=== PATIENT | male | born 1950 | race Caucasian/White ===

== ENCOUNTER 2019-03-19 18:42 | Inpatient (IN) | payer BC ==
--- NOTE | 2019-03-19 18:56 | PDOC ---
Rapid Medical Evaluation Time Seen by Provider: 03/19/19 18:51 Medical Evaluation: Allergies Allergy/AdvReac Type Severity Reaction Status Date / Time No Known Allergies Allergy Unverified 01/03/13 11:54 03/19/19 18:51 Pt presents to the ED with c/o: dizziness decreased vision when he covers his right eye he has blurriness to left eye, numbness to mouth with dizziness x 2 days, sent by jd to r/o stroke, hx tia, hiv, lung cancer Pt on brief exam: EOMI, no facial droop , Pt ordered for: head ct, labs, iv Pt to proceed to the ED Discharge Disposition - Diagnosis Dizziness - Referrals - Patient Instructions - Post Discharge Activity
[2019-03-19 19:56] LABS: BASO % 1.1 % (0-2.0); EOS % 2.6 % (0-4.5); HEMATOCRIT 39.2 % (35.4-49); HEMOGLOBIN 13.1 GM/dL (11.7-16.9); LYMPH % 25.2 % (8-40); MCH 30.3 pg (25.7-33.7); MCHC 33.5 g/dl (32.0-35.9); MEAN CELL VOLUME 90.3 fl (80-96); MEAN PLT VOLUME 10.1 fl (7.5-11.1); NEUT % 62.1 % (42.8-82.8); PLATELET COUNT 248 K/MM3 (134-434); RBC 4.34 M/mm3 (4.00-5.60); RDW 14.5 % (11.9-15.9); WHITE BLOOD COUNT 8.7 K/mm3 (4.0-10.0)
[2019-03-19 20:16] LABS: INR 0.97 (0.83-1.09); PROTHROMBIN TIME (PATIENT) 11.5 SEC (9.7-13.0)
[2019-03-19 20:21] LABS: ALBUMIN 3.7 g/dl (3.4-5.0); ALK PHOS 78 U/L (45-117); ANION GAP 8 MMOL/L (8-16); BILIRUBIN,TOTAL 0.3 mg/dL (0.2-1); BLOOD UREA NITROGEN 15 mg/dL (7-18); CALCIUM 8.6 mg/dL (8.5-10.1); CHLORIDE 106 mmol/L (98-107); CO2 26 mmol/L (21-32); GLUCOSE,RANDOM 85 mg/dL (74-106); MAGNESIUM 2.4 mg/dL (1.8-2.4); POTASSIUM 4.3 mmol/L (3.5-5.1); SGOT/AST 9 U/L (15-37); SGPT/ALT 15 U/L (13-61); SODIUM 140 mmol/L (136-145); TOT PROT 7.1 g/dl (6.4-8.2)
--- NOTE | 2019-03-19 20:34 | PDOC ---
History of Present Illness - General Chief Complaint: CVA/TIA Stated Complaint: DIZZINESS VISION LOSS Time Seen by Provider: 03/19/19 18:51 - History of Present Illness Initial Comments: 69yo M with history of Lung CA s/p chemoradiation and surgery, skin CA, CVA/TIA , HTN, COPD, Smoking (half ppd x 21 years) sent by his primary care physician for worsening dizziness, mouth numbness, confusion, and vision changes. is at the bedside providing collateral history. Patient states he has been dizzy since a "mini stroke" about a year ago. She describes that he had an imaging study at an outside hospital that revealed this finding. His other issues have worsened in the past month or two, and became even more acute today around 1pm, prompting him to see his doctor. He says that his vision has blurred which improves upon closing one eye. He does not usually get headaches, but has had one intermittently for the past 25 days or so. He is more confused: for example , his stroke workup was more than a year ago but during history-taking, he states it was four months ago. 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 Does not feel dizzy currently. Patient' s reports he is supposed to take medicine for his COPD but does not do so. No fevers, chills, chest pain, or shortness of breath. PCP: Dr. Anival Whitaker: Dr Foster Neuro: does not remember the name tPA Exclusion checklist 3-4.5h - Time Elapsed Date last known well: 03/19/19 Time last known well: 13:00 Elaspsed time: 2 Day(s) and 0 Hour(s) and 36 Minutes - Thrombolytic Therapy Candidate Is patient eligible for thrombolytic therapy: No - Relative Exclusion Criteria 3-4.5 hr Stroke severity too mild: Yes - Ineligibility reason(s) Reasons No tPA given: Outside of window - delayed arrival NIH Stroke Scale - Last Known Well Date/Time & Onset Date Last Known Well: 03/19/19 Time Last Known Well: 13:00 - Initial Evaluation Level of consciousness: Alert Ask patient the month and their age: Answers both correctly Ask patient to open & close eyes; make fist and let go: Obeys both correctly Best gaze (horizontal eye movement): Normal Visual field testing: No visual field loss Facial paresis (Show teeth/raise eyebrows/close eyes tight): Normal symmetrical movement Motor Function: Left Arm: Normal Motor Function: Right Arm: Normal (extends arm 90 (or 45) degrees for 10 seconds without drift Motor Function: Left Leg: Normal (extends leg 30 degrees for 5 seconds without drift) Motor Function: Right Leg: Normal (extends leg 30 degrees for 5 seconds without drift) Limb Ataxia: No ataxia Sensory(Use pinprick test arms,legs,trunk,face/side to side): Normal Best language (Describe picture, name items, read sentences): No Aphasia Dysarthria (read several words): Normal articulation Extinction and Inattention: No abnormality - Total Score NIH Stroke Scale Score: 0 Past History - Past Medical History Allergies/Adverse Reactions: Allergies Allergy/AdvReac Type Severity Reaction Status Date / Time No Known Allergies Allergy Verified 03/19/19 18:53 Home Medications: Ambulatory Orders Aspirin [ASA -] 81 mg PO DAILY 03/19/19 COPD: (EMPHYSEMA) Hypercholesterolemia: Yes Liver Disease: Yes ("SPOT ON LIVER") Thyroid Disease: Yes (H/O HYPERTHYROIDISM) - Immunization History Immunization Up to Date: Yes - Suicide/Smoking/Psychosocial Hx Smoking History: Current every day smoker Have you smoked in the past 12 months: Yes Number of Cigarettes Smoked Daily: 5 Information on smoking cessation initiated: No 'Breaking Loose' booklet given: 01/03/13 Hx Alcohol Use: No Drug/Substance Use Hx: No Substance Use Type: Alcohol Hx Substance Use Treatment: No Review of Systems - Review of Systems Comments:: Constitutional: no fever, no chills HEENT: +strange mouth sensation, +vision changes Cardiovascular: no chest pain, no palpitations Respiratory: no cough, no shortness of breath Gastrointestinal: no nausea, no vomiting Genitourinary: no dysuria, no frequency Musculoskeletal: no myalgia, no arthralgia Skin: no rash, no itching Neurologic: +headache, +weakness *Physical Exam - Vital Signs Last Vital Signs Temp Pulse Resp BP Pulse Ox 98.2 F 75 15 146/56 L 97 03/19/19 18:54 03/19/19 18:54 03/19/19 18:54 03/19/19 18:54 03/19/19 18:54 - Physical Exam Comments: General: Awake, alert, and fully oriented Head: No signs of trauma Eyes: EOMI, sclera anicteric ENT: Moist mucus membranes Neck: Normal ROM, supple Lungs: Clear to ascultation bilaterally Cardio: Regular rhythm, S1 and S2 present Abdomen: Soft, nontender Extremities: Normal range of motion, Distal pulses present SKIN: Warm, dry Neurologic: Cranial nerves II through XII intact. Normal speech, sensation, coordination, gait. Please see NIHSS. ED Treatment Course - LABORATORY CBC & Chemistry Diagram: 03/20/19 05:30 03/20/19 05:20 - ADDITIONAL ORDERS Additional order review: Laboratory Results 03/19/19 03/19/19 19:04 19:04 PT with INR 11.50 INR 0.97 Sodium 140 Potassium 4.3 Chloride 106 Carbon Dioxide 26 Anion Gap 8 BUN 15 Creatinine 1.0 Creat Clearance w eGFR 74.09 Random Glucose 85 Calcium 8.6 Magnesium 2.4 Total Bilirubin 0.3 AST 9 L ALT 15 Alkaline Phosphatase 78 Creatine Kinase 120 Troponin I < 0.02 Total Protein 7.1 Albumin 3.7 03/19/19 19:04 RBC 4.34 MCV 90.3 MCHC 33.5 RDW 14.5 MPV 10.1 Neutrophils % 62.1 Lymphocytes % 25.2 Monocytes % 9.0 Eosinophils % 2.6 Basophils % 1.1 Medical Decision Making - Medical Decision Making 69yo M with history of Lung CA s/p chemoradiation and surgery, CVA/TIA, HTN, COPD, Smoking (half ppd x 21 years) sent by his primary care physician for worsening dizziness, mouth numbness, and vision changes. DDX including but not limited to CVA, vascular dementia, electrolyte abnormality , infection It is uncertain what kind of stroke workup patient has received in the past as such was done at another facility. Since he reports worsened symptoms, it is prudent to assess the etiology of the change. NIHSS is 0. Not a TPA candidate. 03/19/19 20:38 EKG: rate 62, QTc 412, NSR, LVH CBC WBC 8.7 K/mm3 (4.0-10.0) 03/19/19 19:04 RBC 4.34 M/mm3 (4.00-5.60) 03/19/19 19:04 Hgb 13.1 GM/dL (11.7-16.9) 03/19/19 19:04 Hct 39.2 % (35.4-49) 03/19/19 19:04 MCV 90.3 fl (80-96) 03/19/19 19:04 MCH 30.3 pg (25.7-33.7) 03/19/19 19:04 MCHC 33.5 g/dl (32.0-35.9) 03/19/19 19:04 RDW 14.5 % (11.9-15.9) 03/19/19 19:04 Plt Count 248 K/MM3 (134-434) 03/19/19 19:04 MPV 10.1 fl (7.5-11.1) 03/19/19 19:04 Absolute Neuts (auto) 5.4 K/mm3 (1.5-8.0) 03/19/19 19:04 Neutrophils % 62.1 % (42.8-82.8) 03/19/19 19:04 Lymphocytes % 25.2 % (8-40) 03/19/19 19:04 Monocytes % 9.0 % (3.8-10.2) 03/19/19 19:04 Eosinophils % 2.6 % (0-4.5) 03/19/19 19:04 Basophils % 1.1 % (0-2.0) 03/19/19 19:04 Nucleated RBC % 0 % (0-0) 03/19/19 19:04 No anemia or leukocytosis CMP Sodium 140 mmol/L (136-145) 03/19/19 19:04 Potassium 4.3 mmol/L (3.5-5.1) 03/19/19 19:04 Chloride 106 mmol/L (98-107) 03/19/19 19:04 Carbon Dioxide 26 mmol/L (21-32) 03/19/19 19:04 Anion Gap 8 MMOL/L (8-16) 03/19/19 19:04 BUN 15 mg/dL (7-18) 03/19/19 19:04 Creatinine 1.0 mg/dL (0.55-1.3) 03/19/19 19:04 Creat Clearance w eGFR 74.09 (>60) 03/19/19 19:04 Random Glucose 85 mg/dL (74-106) 03/19/19 19:04 Calcium 8.6 mg/dL (8.5-10.1) 03/19/19 19:04 Magnesium 2.4 mg/dL (1.8-2.4) 03/19/19 19:04 Total Bilirubin 0.3 mg/dL (0.2-1) 03/19/19 19:04 AST 9 U/L (15-37) L 03/19/19 19:04 ALT 15 U/L (13-61) 03/19/19 19:04 Alkaline Phosphatase 78 U/L (45-117) 03/19/19 19:04 Creatine Kinase 120 U/L (26-308) 03/19/19 19:04 Troponin I < 0.02 ng/ml (0.00-0.05) 03/19/19 19:04 Total Protein 7.1 g/dl (6.4-8.2) 03/19/19 19:04 Albumin 3.7 g/dl (3.4-5.0) 03/19/19 19:04 Electrolytes WNL Tpn undetectable Call from Dr. Garcia, radiologist, who reports that CT scan shows Right cerebellar infarcts that are acute or subacute Page sent to neuro Discussed case with Dr. Valladares. It is still uncertain whether the imaging is showing stroke vs. metastasis. He recommends MRI w/ and w/o contrast and carotid doppler study. Dr. Valladares does not recommend any anticoagulation at this time. Plan to admit 03/19/19 23:[address] Elias who accepted patient for telemetry observation under Dr. Brown 03/20/19 00:08 Patient's , Anette Nunez, can be reached at [phone] 03/20/19 00:10 *DC/Admit/Observation/Transfer Diagnosis at time of Disposition: Dizziness Cerebrovascular accident (CVA) Qualifiers: CVA mechanism: unspecified Qualified Code(s): I63.9 - Cerebral infarction, unspecified - Discharge Dispostion Condition at time of disposition: Guarded Decision to Admit order: Yes - Referrals - Patient Instructions - Post Discharge Activity
[2019-03-19 23:38] LABS: PH,URINE 7.5 (5.0-8.0); URINE APPEARANCE CLEAR; URINE BILIRUBIN NEGATIVE (NEGATIVE); URINE COLOR YELLOW; URINE GLUCOSE (UA) NEGATIVE (NEGATIVE); URINE KETONE NEGATIVE (NEGATIVE); URINE LEUK ESTERASE NEGATIVE (NEGATIVE); URINE NITRITE NEGATIVE (NEGATIVE); URINE PROTEIN NEGATIVE (NEGATIVE); URINE UROBILINOGEN 0.2 mg/dL (0.2-1.0)
--- NOTE | 2019-03-19 23:42 | PDOC ---
Documentation entered by Rico Riojas SCRIBE, acting as scribe for Kanchan Camargo DO. Kanchan Camargo DO: This documentation has been prepared by the Beulah hernández Matthew, SCRIBE, under my direction and personally reviewed by me in its entirety. I confirm that the documentation accurately reflects all work, treatment, procedures, and medical decision making performed by me. Attending Attestation - Resident Resident Name: ElaineYennyOdette - ED Attending Attestation I have performed the following: I have examined & evaluated the patient, The case was reviewed & discussed with the resident, I agree w/resident's findings & plan - HPI HPI: 03/19/19 21:50 Patient is a 69 year old male with a significant past medical history of Lung CA s/p chemoradiation and surgery, HTN, TIA, COPD, who presents to the ED with complaints of dizziness that began earlier month. Patient reports experiencing worsening dizziness as well as associated mouth numbness and vision changes. He reports going to see his PCP who advised he glen in to the ED for further evaluation. Patient reports experiencing chronic intermittent dizziness since having a mini stroke 1 year ago. He reports experiencing an intermittent head pain that he states began 25 days ago. Denies chest pain, Sob. Denies nausea, vomiting. Denies fevers, chills. Denies constipation, diarrhea. Denies contact with sick individuals, out of state travellings. Denies any other symptoms. Allergies: None Social history: Current smoker. No alcohol. No illicit drugs. Surgical history: None PMD: Dr. Anival Whitaker: Dr Foster - Physicial Exam PE: 03/19/19 21:50 Agree with residents Physical Exam. - Medical Decision Making 03/19/19 23:40 Addendum on 69-year-old male with intermittent visual disturbance advised to come in by his regular physician for further evaluation of possible TIAs or stroke CT scan of the brain obtained today shows multiple areas of acute distress acute cerebellar infarcts Case discussed with neurology implementation technician, Dr. Martínez off by the emergency department resident was recommended no anticoagulation at this time and has requested MRI which has been ordered Plan for admission to medical service for further evaluation
--- NOTE | 2019-03-20 00:49 | PN ---
Teaching Attending Note Name of Resident: Elsa Elias ATTENDING PHYSICIAN STATEMENT I saw and evaluated the patient. I reviewed the resident's note and discussed the case with the resident. I agree with the resident's findings and plan as documented. SUBJECTIVE: Presents with dizziness, blurred vision, periorbital numbness. He has had these for the past year and acutely worsened today. [place] [facility] [place] say neuro there and had a MRI done there and was told he may have had a TIA. He saw a neurologist [place] [facility] but they do not recall their name. Recently, he has been having blurred vision for 3 months. Numbness around the mouth started 1 month ago. This weekend he had continued dizziness that was affecting his driving. They went to see Dr. Cruz today and was noted to have some dysarthria that was noted to begin ~1PM. She indicated that this happened in the past but this was worse. NIHSS 0 when he came to the ER and he was out of the tPA window. Neurology called by ER; appreciate expert opinion. Per their note: "Dr. Valladares. It is still uncertain whether the imaging is showing stroke vs. metastasis. He recommends MRI w/ and w/o contrast and carotid doppler study. Dr. Valladares does not recommend any anticoagulation at this time. " He was on home aspirin. 10 sys ROS done and negative aside from HPI PMH (Lung CA s/p chemoradiation and surgery, HTN, TIA, COPD), PSH, FH, SH reviewed Home Medications Medication Instructions Recorded Aspirin [ASA -] 81 mg PO DAILY 03/19/19 OBJECTIVE: VS, labs, imaging reviewed NAD, AAO, resting comfortably in bed NC AT EOMI PERRLA RRR s1/2 no mgr Lungs CTAB, w/ sym exp NT ND +BS Moves all 4 ext with 4/4 strength, no apparent distortions in sensorium; poor eyesight. Speech normal CT reviewed; shows several acute vs. subacute R-cerebellar infarcts and dense atherosclerotic calcifications along the intracranial vertebral and internal carotid arteries EKG reviewed ASSESSMENT AND PLAN: Patient presents for neurologic sx found to have CVA vs. mets 1) Acute CVA vs. mets -Imaging reviewed; neurology has been consulted. Appreciate exert opinion. -Followup MRI in AM -Continue ASA, starting lipitor. Checking lipid pannel, A1c, TSH. Checking carotid dopplers, echo. PT/OT/ST and swallow eval. -Neuro checks, seizure precautions -Further workup per neurology service 2) Cerebrovascular Disease -Noted in ICA and the IC segments of vertebral; on ASA/Statin, checking lipids. Further workup and treatment per neurology 3) Hx Lung Adenocarcinoma -S/p chemorad and sgy; records from [facility] pending 4) Hx HTN -Not on home meds; monitor. 5) Hx COPD -Not on home 2; does not meet criteria for exacerbation -Monitor sx; PRN albuterol
--- NOTE | 2019-03-20 00:57 | HP ---
CHIEF COMPLAINT: dysarthria, blurred vision, dizziness PCP: Dr. Florian HISTORY OF PRESENT ILLNESS: 69 y/o M with PMH lung CA (adenoCA, R apical lung mass s/p chemo and rad; 33 rad tx last done 1 yr ago. sx was done 5.5 yrs ago), ?CVA "mini-stroke" 1 yr ago , HTN, COPD (not on home 02, or nebs by choice), skin CA-nose, who presents to the ED c/o worsening dizziness, dysarthria, blurred vision x 1 day duration. Pt in USOH until 1pm yesterday (03/19)day of presentation to the ED. As per , one year ago, pt was at a check-up at [facility] for his lung CA when he began to feel dizzy. States that he saw a neurologist at [facility] to have this further examined, and had a brain MRI done which was WNL. Three months ago, pt started to also develop blurred vision. 1.5 months ago, he developed perioral numbness. Each of these sx have continued into the current day, however his sx were worsened yesterday before he presented. States that on the day of presentation, he also had dysarthria (which he has had over the past yr), however it was worsened. Was seen by PMD Dr. Florian and rec to come in for further eval. On presentation to the ED, his NIHSS was 0. He was outside the tPA window. On my exam, NIHSS still 0. Denies SCOTT, fever, chills, chest pain or pressure, or changes in urinary or bowel function. Of note, states that the patient has seen another neurologist in the interim (besides the one seen at [facility]), however she does not remember their name. 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 lives with . ambulates on own. Smokin-5 cigs/day x 40 yrs Alcohol: social Drugs: denies Family History: father - lived to age 99. no health hx as per pt. mother- colon CA, sis- breast CA Allergies No Known Allergies Allergy (Verified 03/19/19 18:53) HOME MEDICATIONS: Home Medications Medication Instructions Recorded Aspirin [ASA -] 81 mg PO DAILY 03/19/19 verified with pt and at bedside only medication REVIEW OF SYSTEMS CONSTITUTIONAL: Absent: fever, chills, diaphoresis, generalized weakness, malaise, loss of appetite, weight change HEENT: Absent: rhinorrhea, nasal congestion, throat pain, throat swelling, difficulty swallowing, mouth swelling, ear pain, eye pain, visual changes CARDIOVASCULAR: Absent: chest pain, syncope, palpitations, irregular heart rate, lightheadedness , peripheral edema RESPIRATORY: Absent: cough, shortness of breath, dyspnea with exertion, orthopnea, wheezing, stridor, hemoptysis GASTROINTESTINAL: Absent: abdominal pain, abdominal distension, nausea, vomiting, diarrhea, constipation, melena, hematochezia GENITOURINARY: Absent: dysuria, frequency, urgency, hesitancy, hematuria, flank pain, genital pain MUSCULOSKELETAL: Absent: myalgia, arthralgia, joint swelling, back pain, neck pain SKIN: Absent: rash, itching, pallor HEMATOLOGIC/IMMUNOLOGIC: Absent: easy bleeding, easy bruising, lymphadenopathy, frequent infections ENDOCRINE: Absent: unexplained weight gain, unexplained weight loss, heat intolerance, cold intolerance NEUROLOGIC: +dizziness, perioral numbness, blurred vision Absent: headache, focal weakness or paresthesias, dizziness, unsteady gait, seizure, mental status changes, bladder or bowel incontinence PSYCHIATRIC: Absent: anxiety, depression, suicidal or homicidal ideation, hallucinations. PHYSICAL EXAMINATION Vital Signs - 24 hr 03/19/19 18:54 Temperature 98.2 F Pulse Rate 75 Respiratory 15 Rate Blood Pressure 146/56 L O2 Sat by Pulse 97 Oximetry (%) GENERAL: AAOx 3. resting in bed. HEAD: Normal with no signs of trauma. EYES: Pupils equal, round and reactive to light, extraocular movements intact, sclera anicteric, conjunctiva clear. No nystagmus noted on my exam. EARS, NOSE, THROAT: Ears normal, nares patent, oropharynx clear without exudates. Moist mucous membranes. NECK: Normal range of motion, supple LUNGS: +decreased breath sounds at bases HEART: Regular rate and rhythm, normal S1 and S2 without murmur, rub or gallop. ABDOMEN: Soft, nontender, not distended, normoactive bowel sounds, no guarding, no rebound, no masses. LOWER EXTREMITIES: 2+ pt pulses, warm, well-perfused. No calf tenderness. No peripheral edema. NEUROLOGICAL: Cranial nerves II-XII intact. Normal speech- did not note dysarthria currently. 5/5 motor strength. sensation intact. reflexes difficult to elicit as pt would not relax. AAO x 3 PSYCHIATRIC: Cooperative. Laboratory Results 03/19/19 03/19/19 03/19/19 19:04 19:04 19:04 WBC 8.7 RBC 4.34 Hgb 13.1 Hct 39.2 MCV 90.3 MCH 30.3 MCHC 33.5 RDW 14.5 Plt Count 248 MPV 10.1 Absolute Neuts (auto) 5.4 Neutrophils % 62.1 Lymphocytes % 25.2 Monocytes % 9.0 Eosinophils % 2.6 Basophils % 1.1 Nucleated RBC % 0 PT with INR 11.50 INR 0.97 Sodium 140 Potassium 4.3 Chloride 106 Carbon Dioxide 26 Anion Gap 8 BUN 15 Creatinine 1.0 Creat Clearance w eGFR 74.09 Random Glucose 85 Calcium 8.6 Magnesium 2.4 Total Bilirubin 0.3 AST 9 L ALT 15 Alkaline Phosphatase 78 Creatine Kinase 120 Troponin I < 0.02 Total Protein 7.[address]: several acute/subacute nonhem infarcts. R cerebellar area. dense atherosclerotic calcifications, intracranial, vertebral ICA's. EKG: NSR, LVH. rate 62bpm, qtc 412ms ASSESSMENT/PLAN: 69 y/o M with PMH lung CA (adenoCA, R apical lung mass s/p chemo and rad; 33 rad tx last done 1 yr ago. sx was done 5.5 yrs ago), ?CVA "mini-stroke" 1 yr ago , HTN, COPD (not on home 02, or nebs by choice), skin CA-nose, who presents to the ED c/o worsening dizziness, dysarthria, blurred vision x 1 day duration. #Dizziness, dysarthria, blurred vision 2/2 stroke OR mets to brain from lung CA -ED d/w neuro, will f/u brain MRI, carotid duplex -c/w asa. will start on lipitor 40 as statin naive -neuro consult: Dr. Valladares -will also order ECHO -allow for permissive HTN x 24 hrs -neuro checks q4h, sz precautions -f/u lipid profile -PT, NPO, S/S -tele monitoring -in case 2/2 mets, can be f/u as outpt #HTN -allow for permissive HTN -not on any agents #COPD -not on home 02 -currently not in exacerbation -not on meds at home -if needed can add nebs PRN #hx lung adenoCA -c/w outpt f/u -last rad 5.5 yrs ago -received 33 total tx #F/E/N no IVF req at this time continue to follow lytes NPO #PPX DVT: scd's, early ambulation #Dispo tele-obs anticipate d/c in next 24-48 hrs following brain MRI, ECHO, carotid result and neuro eval Visit type - Emergency Visit Emergency Visit: Yes ED Registration Date: 03/19/19 Care time: The patient presented to the Emergency Department on the above date and was hospitalized for further evaluation of their emergent condition. - New Patient This patient is new to me today: Yes Date on this admission: 03/20/19 - Critical Care Critical Care patient: No
[2019-03-20] MEDS ORDERED: ASPIRIN 81 MG CHEWABLE TABLETS ONE (01:52)
[2019-03-20] MEDS: ATORVASTATIN CA 40 MG TABLET (FP) PO SCH ×2 (01:55→21:40)
[2019-03-20] MEDS: ASPIRIN 81 MG CHEWABLE TABLETS PO SCH ×2 (01:55→10:09)
[2019-03-20 06:52] LABS: BASO % 2.2 % (0-2.0); EOS % 3.5 % (0-4.5); HEMATOCRIT 39.6 % (35.4-49); HEMOGLOBIN 13.2 GM/dL (11.7-16.9); LYMPH % 28.3 % (8-40); MCH 29.9 pg (25.7-33.7); MCHC 33.3 g/dl (32.0-35.9); MEAN CELL VOLUME 89.8 fl (80-96); MEAN PLT VOLUME 9.6 fl (7.5-11.1); MONO % 10.9 % (3.8-10.2); NEUT % 55.1 % (42.8-82.8); PLATELET COUNT 252 K/MM3 (134-434); RBC 4.41 M/mm3 (4.00-5.60); RDW 14.8 % (11.9-15.9); WHITE BLOOD COUNT 7.1 K/mm3 (4.0-10.0)
[2019-03-20 07:15] LABS: ANION GAP 6 MMOL/L (8-16); BLOOD UREA NITROGEN 12 mg/dL (7-18); CALCIUM 8.5 mg/dL (8.5-10.1); CHLORIDE 105 mmol/L (98-107); CHOLESTEROL 178 mg/dL (50-200); CO2 27 mmol/L (21-32); CREATININE 0.9 mg/dL (0.55-1.3); GLUCOSE,RANDOM 79 mg/dL (74-106); HDL CHOLESTEROL 51 mg/dL (40-60); MAGNESIUM 2.5 mg/dL (1.8-2.4); PHOSPHOROUS 3.9 mg/dL (2.5-4.9); POTASSIUM 4.2 mmol/L (3.5-5.1); SODIUM 138 mmol/L (136-145); TRIGLYCERIDES 82 mg/dL (0-150)
--- NOTE | 2019-03-20 10:14 | CONSULT ---
Consult - text type - Consultation Consultation Note: NEUROLOGY CONSULT GREATLY APPRECIATED: Events reviewed, patient examined. Her , Anette, is at the bedside and aides in translation. 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 PMHX includes nicotine dependence, ETOH, HTN, COPD, Lung CA s/p chemo and resection (followed at [facility]), and previous CVA/TIA. Reports 1 year of "dizziness" when walking which increased 3 mos ago. Three months of intermittent "dizziness" and blurred and double vision when looking to the left improved with covering one eye. He saw an eye doctor and was told he had "glaucoma" in R eye, but that vision was "normal." Yesterday AM, these symptoms became constant and prompted him to seek medical attention. Today reports he feels back to "normal." Head CT (reviewed): several acute/subacute R cerebellar infarcts. Calcified intracranial carotid and vertebral arteries. Carotid duplex: Plaques at bifurcation of carotids. No sig. stenosis. 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 ROHINI: Bp 146/56. Cor reg. No bruit. Neck supple. NEURO: Mentation/Speech: Ox "[facility]" February 2019. Trump. CNII-CNXII: Mild right adduction deficit. No ptosis. Monocular and binocular kessler appreciated. No facial. [id number] Motor: R upward drift. Decreased ARIAS's R > L. Strength normal. Reflexes normal. Toes downgoing. Coordination: No FTN dystaxia. Sensation: Normal to vibration. Romberg - Gait: Normal. Can walk on heels and toes without difficulty. Impression: Chronic c/o "dizziness" likely due to old (and new) cerebellar infarcts. 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 Suggest: MR Gustavo or CT Angio of the [place] Order Acetylcholine receptor Ab Cardiology, ECHO, and telemetry to evaluate for cardioembolic cause Continue ASA and statin as indicated May require addition of anti-platelet or anticoagulation pending further workup Thank you very much, Riaz Valladares MD
--- NOTE | 2019-03-20 10:55 | PN ---
Progress Note (short form) - Note Progress Note: Pt examined in ER at bedside Pt ambulated to the bathroom steady per feeling hungry Has h/o numbness to mouth for >1 month, vision abnormalities >1 month Vital Signs - 24 hr 03/19/19 03/20/19 03/20/19 18:54 06:17 10:20 Temperature 98.2 F 97.7 F Pulse Rate 75 Pulse Rate [ 70 68 Right Radial] Respiratory 15 18 Rate Blood Pressure 146/56 L Blood Pressure 156/93 142/72 [Right Arm] O2 Sat by Pulse 97 99 99 Oximetry (%) Current Medications Generic Name Dose Route Start Last Admin Trade Name Cordellq PRN Reason Stop Dose Admin Aspirin 81 mg 03/20/19 00:38 03/20/19 10:09 Asa - PO 81 mg DAILY CAROLE Administration Atorvastatin Calcium 40 mg 03/20/19 00:38 03/20/19 01:55 Lipitor - PO 40 mg HS CAROLE Administration Laboratory Results - last 24 hr 03/19/19 03/19/19 03/19/19 19:04 19:04 19:04 WBC 8.7 RBC 4.34 Hgb 13.1 Hct 39.2 MCV 90.3 MCH 30.3 MCHC 33.5 RDW 14.5 Plt Count 248 MPV 10.1 Absolute Neuts (auto) 5.4 Neutrophils % 62.1 Lymphocytes % 25.2 Monocytes % 9.0 Eosinophils % 2.6 Basophils % 1.1 Nucleated RBC % 0 PT with INR 11.50 INR 0.97 Sodium 140 Potassium 4.3 Chloride 106 Carbon Dioxide 26 Anion Gap 8 BUN 15 Creatinine 1.0 Creat Clearance w eGFR 74.09 Random Glucose 85 Hemoglobin A1c % Calcium 8.6 Phosphorus Magnesium 2.4 Total Bilirubin 0.3 AST 9 L ALT 15 Alkaline Phosphatase 78 Creatine Kinase 120 Troponin I < 0.02 Total Protein 7.1 Albumin 3.7 Triglycerides Cholesterol Total LDL Cholesterol HDL Cholesterol Urine Color Urine Appearance Urine pH Ur Specific [place] Urine Protein Urine Glucose (UA) Urine Ketones Urine Blood Urine Nitrite Urine Bilirubin Urine Urobilinogen Ur Leukocyte Esterase Blood Type Antibody Screen 03/19/19 03/19/19 03/20/19 19:04 23:30 05:20 WBC RBC Hgb Hct MCV MCH MCHC RDW Plt Count MPV Absolute Neuts (auto) Neutrophils % Lymphocytes % Monocytes % Eosinophils % Basophils % Nucleated RBC % PT with INR INR Sodium Potassium Chloride Carbon Dioxide Anion Gap BUN Creatinine Creat Clearance w eGFR Random Glucose Hemoglobin A1c % Calcium Phosphorus Magnesium Total Bilirubin AST ALT Alkaline Phosphatase Creatine Kinase Troponin I Total Protein Albumin Triglycerides Cholesterol Total LDL Cholesterol HDL Cholesterol Urine Color Yellow Urine Appearance Clear Urine pH 7.5 Ur Specific [place] 1.007 L Urine Protein Negative Urine Glucose (UA) Negative Urine Ketones Negative Urine Blood Negative Urine Nitrite Negative Urine Bilirubin Negative Urine Urobilinogen 0.2 Ur Leukocyte Esterase Negative Blood Type A POSITIVE A POSITIVE Antibody Screen Negative 03/20/19 03/20/19 03/20/19 05:20 05:20 05:30 WBC RBC Hgb Hct MCV MCH MCHC RDW Plt Count MPV Absolute Neuts (auto) Neutrophils % Lymphocytes % Monocytes % Eosinophils % Basophils % Nucleated RBC % PT with INR INR Sodium 138 Potassium 4.2 Chloride 105 Carbon Dioxide 27 Anion Gap 6 L BUN 12 Creatinine 0.9 Creat Clearance w eGFR 83.67 Random Glucose 79 Hemoglobin A1c % 5.4 Calcium 8.5 Phosphorus 3.9 Magnesium 2.5 H Total Bilirubin AST ALT Alkaline Phosphatase Creatine Kinase Troponin I Total Protein Albumin Triglycerides Cancelled 82 Cholesterol Cancelled 178 Total LDL Cholesterol Cancelled 115 H HDL Cholesterol Cancelled 51 Urine Color Urine Appearance Urine pH Ur Specific [place] Urine Protein Urine Glucose (UA) Urine Ketones Urine Blood Urine Nitrite Urine Bilirubin Urine Urobilinogen Ur Leukocyte Esterase Blood Type Antibody Screen 03/20/19 05:30 WBC 7.1 RBC 4.41 Hgb 13.2 Hct 39.6 MCV 89.8 MCH 29.9 MCHC 33.3 RDW 14.8 Plt Count 252 MPV 9.6 Absolute Neuts (auto) 3.9 Neutrophils % 55.1 Lymphocytes % 28.3 Monocytes % 10.9 H Eosinophils % 3.5 Basophils % 2.2 H Nucleated RBC % 0 PT with INR INR Sodium Potassium Chloride Carbon Dioxide Anion Gap BUN Creatinine Creat Clearance w eGFR Random Glucose Hemoglobin A1c % Calcium Phosphorus Magnesium Total Bilirubin AST ALT Alkaline Phosphatase Creatine Kinase Troponin I Total Protein Albumin Triglycerides Cholesterol Total LDL Cholesterol HDL Cholesterol Urine Color Urine Appearance Urine pH Ur Specific [place] Urine Protein Urine Glucose (UA) Urine Ketones Urine Blood Urine Nitrite Urine Bilirubin Urine Urobilinogen Ur Leukocyte Esterase Blood Type Antibody Screen s1 s2 RRR No facial drooping Rt arm weakness, no tremors, 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 Lungs decreased Abd- soft, NT no edema no nystagmus PLAN Acute CVA Lung CA COPD -- for brain MRI -- Pt's stated that he had a previous CT head >1 year ago, did show a stroke- unsure which one -- telemetry -- swallow eval -- carotid stenosis noted on sono carotids-- vascular eval -- Echo -- cardiology eval Problem List - Problems (1) Lung cancer Code(s): C34.90 - MALIGNANT NEOPLASM OF UNSP PART OF UNSP BRONCHUS OR LUNG (2) Cerebrovascular accident (CVA) Code(s): I63.9 - CEREBRAL INFARCTION, UNSPECIFIED Qualifiers: CVA mechanism: unspecified Qualified Code(s): I63.9 - Cerebral infarction, unspecified (3) Dizziness Code(s): R42 - DIZZINESS AND GIDDINESS
--- NOTE | 2019-03-20 12:24 | CON.CARD ---
Consult Consult Specialty:: Cardiology Referred by:: Dr. Mirta Blanco Reason for Consultation:: Cardiac evaluation - History of Present Illness Chief Complaint: Dizziness History of Present Illness: Patient is a 69 year old male with underlying history of lung CA s/p surgery 6 years ago and s/p chemotherapy and XRT followed at [facility], history of CVA, HTN, COPD, skin CA of nose who presents with worsening of dizziness, dysarthria and blurred vision. He was seen recently at [facility] for his lung CA. He had seen a Neurologist at [facility]. He denies chest pain, SOB or palpitations at the moment. He denies paroxysmal nocturnal dyspnea or orthopnea. He denies fever or chills. He denies nausea, vomiting, diarrhea or abdominal pain. He denies headache or lightheadedness. CT of head revealed several acute/subacute right cerebellar infarcts. He was evaluated by Neurology. Denies prior episodes of syncope. 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 Cardio/Vascular: Yes: HTN Pulmonary: Yes: Cancer (Lung CA), COPD Heme/Onc: Yes: Cancer (Skin CA) - Past Surgical History Additional Surgical History: History of lung mass resection - Alcohol/Substance Use Hx Alcohol Use: Yes (Social) History of Substance Use: reports: None - Smoking History Smoking history: Current every day smoker Have you smoked in the past 12 months: Yes Aproximately how many cigarettes per day: 5 Home Medications - Allergies Allergies/Adverse Reactions: Allergies Allergy/AdvReac Type Severity Reaction Status Date / Time No Known Allergies Allergy Verified 03/19/19 18:53 - Home Medications Home Medications: Ambulatory Orders Aspirin [ASA -] 81 mg PO DAILY 03/19/19 Family Disease History - Family Disease History Family Disease History: CA: Mother (Colon CA), Sister (Breast CA) Review of Systems - Review of Systems Constitutional: reports: Weakness. denies: Chills, Fever Cardiovascular: denies: Chest Pain, Palpitations, Shortness of Breath Respiratory: denies: Cough, Hemoptysis, Orthopnea, PND, SOB, SOB on Exertion Gastrointestinal: denies: Abdominal Pain, Constipation, Diarrhea, Melena, Nausea , Rectal Bleeding, Vomiting Genitourinary: denies: Dysuria, Hematuria Musculoskeletal: denies: Joint Pain Neurological: reports: Dizziness. denies: Headache, Seizure, Syncope Vital Signs: Vital Signs Temperature 97.7 F 03/20/19 06:17 Pulse Rate 68 03/20/19 10:20 Respiratory Rate 18 03/20/19 10:20 Blood Pressure 142/72 03/20/19 10:20 O2 Sat by Pulse Oximetry (%) 99 03/20/19 10:20 Eyes: Yes: PERRL HENT: Yes: Atraumatic Neck: Yes: Supple Respiratory: Yes: CTA Bilaterally Gastrointestinal: Yes: Normal Bowel Sounds, Soft. No: Tenderness Cardiovascular: Yes: Regular Rate and Rhythm JVD: No PMI: Non-Displaced Heart Sounds: Yes: S1, S2. No: Gallop Edema: No - Other Data Labs, Other Data: CBC, BMP 03/20/19 05:30 03/20/19 05:20 INR, PTT INR 0.97 (0.83-1.09) 03/19/19 19:04 Troponin, BNP 03/19/19 19:04 Troponin I < 0.02 NSR with LVH Imaging - Results Chest X-ray: Report Reviewed (apical thickening) Cat Scan: Report Reviewed (Head CT several acute/subacute right cerebellar infarct) EKG: Report Reviewed Problem List - Problems (1) COPD (chronic obstructive pulmonary disease) Code(s): J44.9 - CHRONIC OBSTRUCTIVE PULMONARY DISEASE, UNSPECIFIED Qualifiers: COPD type: unspecified COPD Qualified Code(s): J44.9 - Chronic obstructive pulmonary disease, unspecified (2) Cerebrovascular accident (CVA) Code(s): I63.9 - CEREBRAL INFARCTION, UNSPECIFIED Qualifiers: CVA mechanism: unspecified Qualified Code(s): I63.9 - Cerebral infarction, unspecified (3) Diplopia Code(s): H53.2 - DIPLOPIA (4) Dizziness Code(s): R42 - DIZZINESS AND GIDDINESS (5) HTN (hypertension) Code(s): I10 - ESSENTIAL (PRIMARY) HYPERTENSION Qualifiers: Hypertension type: essential hypertension Qualified Code(s): I10 - Essential (primary) hypertension (6) Lung cancer Code(s): C34.90 - MALIGNANT NEOPLASM OF UNSP PART OF UNSP BRONCHUS OR LUNG Qualifiers: Laterality: unspecified laterality Assessment/Plan 1. Cerebellar and occipital CVA with diplopia and dizziness 2. Lung CA post resection, chemotherapy and XRT 3. COPD PLAN: 1. Continue hospital monitor for detection of AF. He may benefit from prolonged arrhythmia monitor if hospital monitor is unrevealing and it can be done as outpatient 2. Continue ASA 81 mg QD and Lipitor 40 mg QHS. Consider further BP control measures 3. Neuro input noted. If deemed embolic as a cause, may consider ERNA at some point 4. Further Neuro work up including brain MRI and carotid Doppler 5. Echocardiography Further plans are to follow Sly Carrasco MD
--- NOTE | 2019-03-20 13:12 | ECHO ---
Name: BEATRIZRoyer LINDSAYPORFIRIO Exam:Adult Echocardiogram Study Date: 03/20/2019 10:34 AM Age: 69 yrs Reason For Study: Stroke Height: 66 in Weight: 128 lb BSA: 1.7 m2 MMode/2D Measurements & Calculations IVSd: 1.3 cm Ao root diam: 2.7 cm LVIDd: 4.4 cm LA dimension: 2.8 cm LVIDs: 3.5 cm LVPWd: 1.1 cm EDV(Teich): 87.6 ml LVOT diam: 2.0 cm ESV(Teich): 49.7 ml LAV (MOD-bp): 51.1 ml Doppler Measurements & Calculations MV E max balwinder: 57.2 cm/sec Ao V2 max: 146.6 cm/sec MV A max balwinder: 90.2 cm/sec Ao max P.6 mmHg MV E/A: 0.63 MV dec time: 0.21 sec DENA(V,D): 2.0 cm2 LV V1 max P.7 mmHg PA V2 max: 71.9 cm/sec LV V1 max: 95.6 cm/sec PA max P.1 mmHg Med Peak E' Balwinder: 5.2 cm/sec PI Vmax: 149.3 cm/sec Med E/e': 11.0 Lat Peak E' Balwinder: 11.3 cm/sec Lat E/e': 5.1 Procedure A two-dimensional transthoracic echocardiogram with color flow and Doppler was performed. Left Ventricle The left ventricle is normal in size. Left ventricular systolic function is low normal. Ejection Frac tion = 50. The transmitral spectral Doppler flow pattern is suggestive of impaired LV relaxation. Right Ventricle The right ventricle is normal in size and function. Atria Normal left and right atrial size and function. Mitral Valve There is mild mitral valve thickening. There is trace mitral regurgitation. Tricuspid Valve The tricuspid valve is normal in structure and function. There is Trace to mild tricuspid regurgitati on. Aortic Valve The aortic valve is normal in structure and function. Pulmonic Valve The pulmonic valve is not well seen, but is grossly normal. Great Vessels The aortic root is normal size. Normal aortic arch, descending and ascending aorta. Pericardium/Pleura There is no pericardial effusion. There is no pleural effusion. Interpretation Summary The left ventricle is normal in size. Ejection Fraction = 50. The transmitral spectral Doppler flow pattern is suggestive of impaired LV relaxation. The right ventricle is normal in size and function. Normal left and right atrial size and function. There is mild mitral valve thickening. There is trace mitral regurgitation. The tricuspid valve is normal in structure and function. There is Trace to mild tricuspid regurgitation. The aortic valve is normal in structure and function. The pulmonic valve is not well seen, but is grossly normal. The aortic root is normal size. Normal aortic arch, descending and ascending aorta There is no pericardial effusion. There is no pleural effusion. Wing Galarza 03/20/2019 01:12 PM
--- NOTE | 2019-03-20 14:05 | CONSULT ---
Admitting History and Physical - Primary Care Physician PCP: Mirta Blanco - Admission History of Present Illness: 69 yo m with pmh of HTN, COPD, Lung CA s/p chemo and resection and previous CVA /TIA, with intermittent "dizziness" and visual disturbance in R eye over last [address] (reviewed): several acute/subacute R cerebellar infarcts vs ?mets. Calcified intracranial carotid and vertebral arteries. Carotid duplex: Plaques at bifurcation of carotids. No sign stenosis. History Source: Patient, Family Member, Medical Record Limitations to Obtaining History: No Limitations, Language Barrier - Smoking History Smoking history: Current every day smoker Have you smoked in the past 12 months: Yes Aproximately how many cigarettes per day: 5 - Alcohol/Substance Use Hx Alcohol Use: No History - Admission Reason For Visit: DIZZINESS,CEBREBALVASCULAR ACCIDENT (CVA) - Diagnostics X-ray: Report Reviewed CT Scan: Report Reviewed MRI: Pending - General Mental Status: Alert and Oriented, Awake and Alert, Able to Follow Commands Attention: Intact Ability to Follow Directions: Excellent Head/Neck Control: WFL - Hearing Hearing: Functional Speech Evaluation - Communication Primary Language: AMHARIC - Speech Production Able to Make Needs Known: Yes: WNL Intelligibility: Yes: WNL - Speech Characteristics Voice Loudness: Normal Voice Pitch: Yes: Mildly Low Voice Phonatory-based Quality: Yes: Harsh (Long-term smoker. He has never been see by Otolaryngology.), Dysphonia Speech Clarity: < 100% Nasal Resonance: Normal Articulation: Yes: Precise - Language/Auditory Comprehension Follows: Yes: 2 Stage Simple Commands Observation: Able to respond to yes/no queries: Yes, Comprehends Conversational Speech: Yes - Language/Verbal Expression Able to Respond to Simple Queries: Yes: WNL Able to Communicate Wants and Needs: Yes: WNL Functional Communication Status: Yes: WNL - Swallow Evaluation/Bedside Assessment Current Nutritional Intake: Soft, Thin Liquids Oral Secretions: Yes: WFL Dentition: Yes: Adequate Facial Symmetry at Rest: Symmetrical Facial Symmetry on Retraction: Symmetrical Facial Movement: Controlled Sensation: Normal Against Resistance Opening: Normal Against Resistance Closing: Normal Pucker Lips: Normal Smile: Normal Lingual Movement: Normal, Symmetric Lingual Speed of Movement: Normal Lingual Movement Strgth Against Opposition: Normal Lingual Movement Characteristics: Normal Soft Palate Description: Normal Color, Normal Symmetry Hard Palate Description: Normal Color, Normal Symmetry Velopharyngeal Movement: Normal Laryngeal Elevation: WFL Laryngeal Movement: Able to Palpate Rate of Intake: WFL Bolus Size: WFL Labial Seal: WFL Chewing: WFL Oral Prep Time: WFL A-P Transit: WFL Pocketing: None Timing of Swallow: WFL Coughing/Throat Clear: No Change in Voice: No Recommendations - Speech Evaluation, Impression/Plan Impression: Pt's reports when pt has episodes of dizziness, his vision is affected and his speech becomes slurred. Presently pt is at baseline. Harsh, low pitch vocal quality. prison hx of smoking. Vocal cords never assessed by Otoloayngology. - Dysphagia Impressions/Plan Swallowing Skills: WFL Dysphagia Impressions: No Impairment *Silent aspiration: cannot be R/O at bedside Recommendations: ENT Consult (Consider ENT to visualize vocal cords, as part of CA w/u.) - Recommendations Diet Consistency: Regular Medication Administration: Whole with water Liquids: Thin Liquids
--- NOTE | 2019-03-20 14:07 | CONSULT ---
Consult Consult Specialty:: Vascular Surgery Referred by:: Emergency Medicine Reason for Consultation:: Dizziness and dysarthria - History of Present Illness Chief Complaint: Three months of intermittent "dizziness" and visual disturbance in R eye, improved with covering of the eye History of Present Illness: Called to marco antonio 69 yo male with PMHx as noted below. Comes to [facility] ED for emergent evaluation for dizziness and three months of intermittent "dizziness" and visual disturbance in R eye, improved with covering of the eye. Patient has h/o CVA/TIA but doesn't know what year it happened. Currently, patient resting comfortably without complaint. Neurology Consult appreciated. States his vision has returned to normal and feels like his old self. Denies SCOTT, CP, palpitations , irregular rhythm, SOB, ROJAS, numbness, tingling. 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 Pulmonary: Yes: Cancer, COPD Dermatology: Yes: Other (Skin cancer (unkown BCC vs SCC)) - Past Surgical History Additional Surgical History: Right apical lung resection - Alcohol/Substance Use Hx Alcohol Use: No History of Substance Use: reports: None - Smoking History Smoking history: Current every day smoker Have you smoked in the past 12 months: Yes Aproximately how many cigarettes per day: 5 - Social History Usual Living Arrangement: With Spouse ADL: Independent History of Recent Travel: No Home Medications - Allergies Allergies/Adverse Reactions: Allergies Allergy/AdvReac Type Severity Reaction Status Date / Time No Known Allergies Allergy Verified 03/19/19 18:53 - Home Medications Home Medications: Ambulatory Orders Aspirin [ASA -] 81 mg PO DAILY 03/19/19 Review of Systems - Review of Systems Constitutional: reports: No Symptoms Eyes: reports: No Symptoms HENT: reports: No Symptoms Neck: reports: No Symptoms Cardiovascular: reports: No Symptoms. denies: Chest Pain, Palpitations, Shortness of Breath Respiratory: reports: No Symptoms. denies: SOB Gastrointestinal: reports: No Symptoms Genitourinary: reports: No Symptoms Integumentary: reports: No Symptoms Neurological: reports: Dizziness. denies: Headache, Incoordination, Numbness, Parasthesia Endocrine: reports: No Symptoms Hematology/Lymphatic: reports: No Symptoms Psychiatric: reports: No Symptoms Physical Exam Vital Signs: Vital Signs Temperature 97.7 F 03/20/19 06:17 Pulse Rate 68 03/20/19 10:20 Respiratory Rate 18 03/20/19 10:20 Blood Pressure 142/72 03/20/19 10:20 O2 Sat by Pulse Oximetry (%) 99 03/20/19 10:20 Constitutional: Yes: Well Nourished, No Distress Eyes: Yes: WNL, Conjunctiva Clear, EOM Intact. No: Diplopia, Ptosis, Sclera Icterus HENT: Yes: WNL, Atraumatic, Normocephalic Neck: Yes: WNL, Supple, Trachea Midline Cardiovascular: Yes: WNL, Regular Rate and Rhythm Respiratory: Yes: WNL, Regular, CTA Bilaterally Gastrointestinal: Yes: WNL, Normal Bowel Sounds, Soft Musculoskeletal: Yes: WNL Extremities: Yes: WNL Edema: No Peripheral Pulses WNL: Yes Neurological: Yes: WNL, Alert, Oriented, Cran Nerves II-XII Intact. No: Aphasia , Ataxia, Confusion, Dysarthria, Facial Droop, Loss of Sensation, Numbness, Paresthesia, Tingling, Unsteady Gait ...Motor Strength: WNL Psychiatric: Yes: Alert, Oriented Labs: CBC, BMP 03/20/19 05:30 03/20/19 05:20 Imaging - Results Cat Scan: Report Reviewed (Several acute/subacute R cerebellar infarcts vs ? mets. Calcified intracranial carotid and vertebral arteries.) Ultrasound: Report Reviewed (Carotid Duplex) Problem List - Problems (1) Dizziness Code(s): R42 - DIZZINESS AND GIDDINESS (2) Lung cancer Code(s): C34.90 - MALIGNANT NEOPLASM OF UNSP PART OF UNSP BRONCHUS OR LUNG (3) COPD (chronic obstructive pulmonary disease) Code(s): J44.9 - CHRONIC OBSTRUCTIVE PULMONARY DISEASE, UNSPECIFIED (4) HTN (hypertension) Code(s): I10 - ESSENTIAL (PRIMARY) HYPERTENSION Assessment/Plan 69 yo male w/ PMHx CVA. Only takes Baby ASA at home. Comes to [facility] for evaluation of dizziness and blurred vision x3 months. Currently all symptoms have resolved. Patient had a carotid duplex while in the ED which identified plaques at the carotid bulbs bilateral without any hemodynamic significant/ stenosis. Continue medical mangement Antiplatelet therapy No vascular surgery procedure indicated Above plan discussed with Dr. Urena and agrees. On behalf of Dr. Urena, thank you for the opportunity to participate in your patient's care Visit type - Emergency Visit Emergency Visit: Yes ED Registration Date: 03/20/19 Care time: The patient presented to the Emergency Department on the above date and was hospitalized for further evaluation of their emergent condition. - New Patient This patient is new to me today: Yes Date on this admission: 03/20/19 - Critical Care Critical Care patient: No
--- NOTE | 2019-03-20 14:59 | PN ---
Progress Note (short form) - Note Progress Note: VAscular Surgery Images from carotid doppler reviewed. No elevated peak systolic velocities. Less than 50% stenosis . Medical management Joaquim Urena dO
--- NOTE | 2019-03-20 17:16 | EKG ---
Test Reason : Blood Pressure : / mmHG Vent. Rate : 062 BPM Atrial Rate : 062 BPM P-R Int : 136 ms QRS Dur : 088 ms QT Int : 406 ms P-R-T Axes : 068 053 053 degrees QTc Int : 412 ms NORMAL SINUS RHYTHM POSSIBLE LEFT ATRIAL ENLARGEMENT LEFT VENTRICULAR HYPERTROPHY ABNORMAL ECG NO PREVIOUS ECGS AVAILABLE Confirmed by MD Noel, Perfecto ([id number]) on 03/20/2019 5:15:50 PM Referred By: Confirmed By:Perfecto Cohen MD
[2019-03-20 20:00] VITALS: BMI 19.0
[2019-03-21] MEDS: ASPIRIN 81 MG CHEWABLE TABLETS PO SCH (09:06)
--- NOTE | 2019-03-21 11:24 | PN ---
Progress Note, Physician History of Present Illness: Diplopia and dizziness resolving. - Current Medication List Current Medications: Active Medications Aspirin (Asa -) 81 mg PO DAILY [facility] Last Admin: 03/21/19 09:06 Dose: 81 mg Atorvastatin Calcium (Lipitor -) 40 mg PO HS [facility] Last Admin: 03/20/19 21:40 Dose: 40 mg - Objective Vital Signs: Vital Signs Temperature 98.1 F 03/21/19 09:26 Pulse Rate 64 03/21/19 09:26 Respiratory Rate 18 03/21/19 09:26 Blood Pressure 133/67 03/21/19 09:26 O2 Sat by Pulse Oximetry (%) 98 03/21/19 09:00 Constitutional: Yes: No Distress, Calm, Thin Neck: Yes: Supple Cardiovascular: Yes: Regular Rate and Rhythm Respiratory: Yes: Regular, CTA Bilaterally Gastrointestinal: Yes: Normal Bowel Sounds, Soft Edema: No Labs: CBC, BMP 03/20/19 05:30 03/20/19 05:20 INR, PTT INR 0.97 (0.83-1.09) 03/19/19 19:04 - ....Imaging EKG: Report Reviewed (Tele: SR, PVC, no PAF) Problem List - Problems (1) COPD (chronic obstructive pulmonary disease) Code(s): J44.9 - CHRONIC OBSTRUCTIVE PULMONARY DISEASE, UNSPECIFIED Qualifiers: COPD type: unspecified COPD Qualified Code(s): J44.9 - Chronic obstructive pulmonary disease, unspecified (2) Cerebrovascular accident (CVA) Code(s): I63.9 - CEREBRAL INFARCTION, UNSPECIFIED Qualifiers: CVA mechanism: unspecified Qualified Code(s): I63.9 - Cerebral infarction, unspecified (3) Dizziness Code(s): R42 - DIZZINESS AND GIDDINESS (4) HTN (hypertension) Code(s): I10 - ESSENTIAL (PRIMARY) HYPERTENSION Qualifiers: Hypertension type: essential hypertension Qualified Code(s): I10 - Essential (primary) hypertension (5) Lung cancer Code(s): C34.90 - MALIGNANT NEOPLASM OF UNSP PART OF UNSP BRONCHUS OR LUNG Qualifiers: Laterality: unspecified laterality (6) Diplopia Code(s): H53.2 - DIPLOPIA Assessment/Plan 03/20/2019 Echo: Normal LV size and fxn LVEF 50%, impaired LV relaxation, normal RV size and fxn, tr MR, tr-mild TR 03/20/2019 Brain MRI: Several acute right cerebellar strokes, punctate acute left occipital infarct, small chronic bilaterak cerebellar strokes, left parietotemporal chronic microbleed 03/20/2019 Head CTA: No aneursym 1. Acute on chronic cerebellar and occipital CVA with diplopia and dizziness 2. Lung CA 3. 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 Continue ASA 81 qd and Lipitor 40 qhs, start ramipril 2.5 qd with uptitration as tolerated 3. Consider ERNA to r/o ROSITA thrombus as outpatient
[2019-03-21] MEDS: RAMIPRIL 2.5 MG CAPSULE (FP) PO SCH (12:39)
--- NOTE | 2019-03-21 13:19 | PN ---
Progress Note (short form) - Note Progress Note: Pt examined no complaints Vital Signs - 24 hr 03/20/19 03/20/19 03/20/19 14:10 16:00 18:00 Temperature 97.6 F Pulse Rate 62 Pulse Rate [ 70 72 Right Radial] Respiratory 17 17 20 Rate Blood Pressure 142/89 Blood Pressure 147/82 142/78 [Right Arm] O2 Sat by Pulse 98 98 Oximetry (%) 03/20/19 03/20/19 03/20/19 19:51 19:59 21:00 Temperature 97.6 F Pulse Rate 62 Pulse Rate [ Right Radial] Respiratory 20 16 17 Rate Blood Pressure 142/89 Blood Pressure [Right Arm] O2 Sat by Pulse 98 98 Oximetry (%) 03/20/19 03/21/19 03/21/19 22:00 02:00 06:00 Temperature 97.7 F 97.9 F 97.4 F L Pulse Rate 64 64 57 L Pulse Rate [ Right Radial] Respiratory 17 20 20 Rate Blood Pressure 151/90 151/80 150/91 Blood Pressure [Right Arm] O2 Sat by Pulse Oximetry (%) 03/21/19 03/21/19 09:00 09:26 Temperature 98.1 F Pulse Rate 64 Pulse Rate [ Right Radial] Respiratory 18 18 Rate Blood Pressure 133/67 Blood Pressure [Right Arm] O2 Sat by Pulse 98 Oximetry (%) Current Medications Generic Name Dose Route Start Last Admin Trade Name Cordellq PRN Reason Stop Dose Admin Aspirin 81 mg 03/20/19 00:38 03/21/19 09:06 Asa - PO 81 mg DAILY [facility] Administration Atorvastatin Calcium 40 mg 03/20/19 00:38 03/20/19 21:40 Lipitor - PO 40 mg HS [facility] Administration Ramipril 2.5 mg 03/21/19 12:30 03/21/19 12:39 Altace - PO 2.5 mg DAILY [facility] Administration s1 s2 RRR No facial drooping Rt arm weakness, no tremors, 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 Lungs decreased Abd- soft, NT no edema no nystagmus PLAN Acute CVA Lung CA COPD r/o parox Afib -- brain MRI noted-- multiple infarcts \-- Agree with ERNA -- recommended by Cardiology -- spoke with Swallow therapist-- will need ENT eval for hoarseness voice -- Pt's stated that he had a previous CT head >1 year ago, did show a stroke- unsure which one -- telemetry -- head CTA noted-- no aneurysms Problem List - Problems (1) Lung cancer Code(s): C34.90 - MALIGNANT NEOPLASM OF UNSP PART OF UNSP BRONCHUS OR LUNG Qualifiers: Laterality: unspecified laterality (2) Cerebrovascular accident (CVA) Code(s): I63.9 - CEREBRAL INFARCTION, UNSPECIFIED Qualifiers: CVA mechanism: unspecified Qualified Code(s): I63.9 - Cerebral infarction, unspecified (3) Dizziness Code(s): R42 - DIZZINESS AND GIDDINESS
--- NOTE | 2019-03-21 13:25 | PN ---
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 Dysphonia/FPC smoker. Consider visualization of vocal cords.
--- NOTE | 2019-03-21 19:31 | PN ---
Progress Note (short form) - Note Progress Note: NEUROLOGY PROGRESS: Events reviewed, patient examined. 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 Carotid duplex: Intimal calcifications without stenosis. Patient feels well today without headache or diplopia Ambulating without difficulty. Exam: Full EOM's. No ptosis Neuro: Mild right FTN dystaxia Slightly wide-based gait IMP: s/p Right cerebellar infarct (s) Due to right vertebral occlusion. Suggest: Ask heme/onc to address possible hyper-coagulable state. Agree with cardiology w/u as described-but doubt cardioembolic CVA Add Plavix 75 mg PO qd. Neuro F/u as out patient. Thank you very much, Riaz Valladares MD
[2019-03-21] MEDS: ATORVASTATIN CA 40 MG TABLET (FP) PO SCH (21:31)
[2019-03-22] MEDS ORDERED: PT OWN MED DRAWER 7, Y5N ONE (09:45)
[2019-03-22] MEDS: RAMIPRIL 2.5 MG CAPSULE (FP) PO SCH (09:46)
[2019-03-22] MEDS: ASPIRIN 81 MG CHEWABLE TABLETS PO SCH (09:46)
--- NOTE | 2019-03-22 10:03 | PN ---
Progress Note, Physician History of Present Illness: Diplopia and dizziness resolving. - Current Medication List Current Medications: Active Medications Aspirin (Asa -) 81 mg PO DAILY [facility] Last Admin: 03/22/19 09:46 Dose: 81 mg Atorvastatin Calcium (Lipitor -) 40 mg PO HS [facility] Last Admin: 03/21/19 21:31 Dose: 40 mg Ramipril (Altace -) 2.5 mg PO DAILY [facility] Last Admin: 03/22/19 09:46 Dose: 2.5 mg - Objective Vital Signs: Vital Signs Temperature 97.7 F 03/22/19 06:00 Pulse Rate 60 03/22/19 06:00 Respiratory Rate 18 03/22/19 09:00 Blood Pressure 139/62 03/22/19 06:00 O2 Sat by Pulse Oximetry (%) 99 03/22/19 09:00 Constitutional: Yes: No Distress, Calm Neck: Yes: Supple Cardiovascular: Yes: Regular Rate and Rhythm Respiratory: Yes: Regular, CTA Bilaterally Gastrointestinal: Yes: Normal Bowel Sounds, Soft Edema: No Labs: CBC, BMP 03/20/19 05:30 03/20/19 05:20 INR, PTT INR 0.97 (0.83-1.09) 03/19/19 19:04 - ....Imaging EKG: Report Reviewed (Tele: NSR, no PAF) Problem List - Problems (1) COPD (chronic obstructive pulmonary disease) Code(s): J44.9 - CHRONIC OBSTRUCTIVE PULMONARY DISEASE, UNSPECIFIED Qualifiers: COPD type: unspecified COPD Qualified Code(s): J44.9 - Chronic obstructive pulmonary disease, unspecified (2) Cerebrovascular accident (CVA) Code(s): I63.9 - CEREBRAL INFARCTION, UNSPECIFIED Qualifiers: CVA mechanism: unspecified Qualified Code(s): I63.9 - Cerebral infarction, unspecified (3) Dizziness Code(s): R42 - DIZZINESS AND GIDDINESS (4) HTN (hypertension) Code(s): I10 - ESSENTIAL (PRIMARY) HYPERTENSION Qualifiers: Hypertension type: essential hypertension Qualified Code(s): I10 - Essential (primary) hypertension (5) Lung cancer Code(s): C34.90 - MALIGNANT NEOPLASM OF UNSP PART OF UNSP BRONCHUS OR LUNG Qualifiers: Laterality: unspecified laterality (6) Diplopia Code(s): H53.2 - DIPLOPIA Assessment/Plan 03/20/2019 Echo: Normal LV size and fxn LVEF 50%, impaired LV relaxation, normal RV size and fxn, tr MR, tr-mild TR 03/20/2019 Brain MRI: Several acute right cerebellar strokes, punctate acute left occipital infarct, small chronic bilaterak cerebellar strokes, left parietotemporal chronic microbleed 03/20/2019 Head CTA: NO P comm aneurysm but does 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 1. 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 Lung CA 3. COPD P:1. access tech for PAF, may benefit from prolonged arrhythmia monitor if unrevealing 2. Continue ASA 81 qd, Lipitor 40 qhs, ramipril 2.5 qd with uptitration as tolerated, start Plavix 75 qd per neuro recs 3. Consider ERNA to r/o ROSITA thrombus as outpatient
[2019-03-22] MEDS: CLOPIDOGREL BISULFATE 75 MG TABLET (FP) PO SCH (10:23)
--- NOTE | 2019-03-22 13:18 | PN ---
Progress Note (short form) - Note Progress Note: Pt examined moving well with PT \ Vital Signs - 24 hr 03/21/19 03/21/19 03/21/19 14:30 18:00 21:00 Temperature 98.0 F 97.9 F 97.8 F Pulse Rate 80 58 L 62 Respiratory 16 18 18 Rate Blood Pressure 153/79 136/69 115/64 O2 Sat by Pulse 99 Oximetry (%) 03/22/19 03/22/19 03/22/19 02:00 06:00 09:00 Temperature 97.8 F 97.7 F Pulse Rate 59 L 60 Respiratory 18 18 18 Rate Blood Pressure 152/75 139/62 O2 Sat by Pulse 99 Oximetry (%) 03/22/19 10:00 Temperature 98 F Pulse Rate 67 Respiratory 18 Rate Blood Pressure O2 Sat by Pulse Oximetry (%) Current Medications Generic Name Dose Route Start Last Admin Trade Name Freq PRN Reason Stop Dose Admin Aspirin 81 mg 03/20/19 00:38 03/22/19 09:46 Asa - PO 81 mg DAILY [facility] Administration Atorvastatin Calcium 40 mg 03/20/19 00:38 03/21/19 21:31 Lipitor - PO 40 mg HS [facility]LE Administration Clopidogrel Bisulfate 75 mg 03/22/19 10:15 03/22/19 10:23 Plavix - PO 75 mg DAILY [facility] Administration Ramipril 2.5 mg 03/21/19 12:30 03/22/19 09:46 Altace - PO 2.5 mg DAILY [facility] Administration s1 s2 RRR No facial drooping Rt arm weakness, no tremors, 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 Lungs decreased Abd- soft, NT no edema no nystagmus PLAN Acute CVA Lung CA COPD r/o parox Afib -- brain MRI noted-- multiple infarcts \-- Agree with ERNA -- recommended by Cardiology-- as outpt -- spoke with Swallow therapist-- will need ENT eval for hoarseness voice -- Pt's stated that he had a previous CT head >1 year ago, did show a stroke- unsure which one -- telemetry -- head CTA noted-- no aneurysms -- Added Plavix -- Hematology eval for hypercoagulable state due to Lung CA -- [place] [facility] [place] Problem List - Problems (1) Lung cancer Code(s): C34.90 - MALIGNANT NEOPLASM OF UNSP PART OF UNSP BRONCHUS OR LUNG Qualifiers: Laterality: unspecified laterality (2) Cerebrovascular accident (CVA) Code(s): I63.9 - CEREBRAL INFARCTION, UNSPECIFIED Qualifiers: CVA mechanism: unspecified Qualified Code(s): I63.9 - Cerebral infarction, unspecified (3) Dizziness Code(s): R42 - DIZZINESS AND GIDDINESS
[2019-03-22] MEDS: ATORVASTATIN CA 40 MG TABLET (FP) PO SCH (21:32)
[2019-03-23] MEDS: CLOPIDOGREL BISULFATE 75 MG TABLET (FP) PO SCH (09:20)
[2019-03-23] MEDS: RAMIPRIL 2.5 MG CAPSULE (FP) PO SCH (09:20)
[2019-03-23] MEDS: ASPIRIN 81 MG CHEWABLE TABLETS PO SCH (09:20)
--- NOTE | 2019-03-23 10:58 | PN ---
Progress Note, Physician History of Present Illness: Diplopia and dizziness resolved. No PAF on telemetry. - Current Medication List Current Medications: Active Medications Aspirin (Asa -) 81 mg PO DAILY [facility] Last Admin: 03/23/19 09:20 Dose: 81 mg Atorvastatin Calcium (Lipitor -) 40 mg PO HS [facility] Last Admin: 03/22/19 21:32 Dose: 40 mg Clopidogrel Bisulfate (Plavix -) 75 mg PO DAILY [facility] Last Admin: 03/23/19 09:20 Dose: 75 mg Ramipril (Altace -) 2.5 mg PO DAILY [facility] Last Admin: 03/23/19 09:20 Dose: 2.5 mg - Objective Vital Signs: Vital Signs Temperature 98.2 F 03/23/19 10:00 Pulse Rate 73 03/23/19 10:00 Respiratory Rate 18 03/23/19 10:00 Blood Pressure 138/77 03/23/19 10:00 O2 Sat by Pulse Oximetry (%) 96 03/23/19 09:00 Constitutional: Yes: No Distress, Calm, Thin Neck: Yes: Supple Cardiovascular: Yes: Regular Rate and Rhythm Respiratory: Yes: Regular, CTA Bilaterally Gastrointestinal: Yes: Normal Bowel Sounds, Soft Edema: No Labs: CBC, BMP 03/20/19 05:30 03/20/19 05:20 INR, PTT INR 0.97 (0.83-1.09) 03/19/19 19:04 - ....Imaging EKG: Report Reviewed (NSR PVC, no PAF) Problem List - Problems (1) COPD (chronic obstructive pulmonary disease) Code(s): J44.9 - CHRONIC OBSTRUCTIVE PULMONARY DISEASE, UNSPECIFIED Qualifiers: COPD type: unspecified COPD Qualified Code(s): J44.9 - Chronic obstructive pulmonary disease, unspecified (2) Cerebrovascular accident (CVA) Code(s): I63.9 - CEREBRAL INFARCTION, UNSPECIFIED Qualifiers: CVA mechanism: unspecified Qualified Code(s): I63.9 - Cerebral infarction, unspecified (3) Dizziness Code(s): R42 - DIZZINESS AND GIDDINESS (4) HTN (hypertension) Code(s): I10 - ESSENTIAL (PRIMARY) HYPERTENSION Qualifiers: Hypertension type: essential hypertension Qualified Code(s): I10 - Essential (primary) hypertension (5) Lung cancer Code(s): C34.90 - MALIGNANT NEOPLASM OF UNSP PART OF UNSP BRONCHUS OR LUNG Qualifiers: Laterality: unspecified laterality (6) Diplopia Code(s): H53.2 - DIPLOPIA Assessment/Plan 03/20/2019 Echo: Normal LV size and fxn LVEF 50%, impaired LV relaxation, normal RV size and fxn, tr MR, tr-mild TR 03/20/2019 Brain MRI: Several acute right cerebellar strokes, punctate acute left occipital infarct, small chronic bilaterak cerebellar strokes, left parietotemporal chronic microbleed 03/20/2019 Head CTA: NO P comm aneurysm but does 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 1. 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 Lung CA 3. COPD P:1. radiation monitor negative for PAF thus far, may benefit from prolonged arrhythmia monitor if unrevealing 2. Continue ASA 81 qd, Lipitor 40 qhs, ramipril 2.5 qd with uptitration as tolerated, started Plavix 75 qd per neuro recs 3. Consider ERNA to r/o ROSITA thrombus as outpatient
--- NOTE | 2019-03-23 11:24 | PN ---
Progress Note (short form) - Note Progress Note: pt seen/examined chart reviewed awake/ comfortable denies cp/sob ambulatory in room Vital Signs Temp 98.2 F 03/23/19 10:00 Pulse 73 03/23/19 10:00 Resp 18 03/23/19 10:00 BP 138/77 03/23/19 10:00 Pulse Ox 96 03/23/19 09:00 Intake & Output 03/22/19 03/22/19 03/23/19 11:59 23:59 11:59 Intake Total 380 640 490 Output Total 400 Balance 380 640 90 Weight 125 lb Intake: Oral 380 640 490 Output: Urine 400 Void 400 Other: Voiding Method Toilet Toilet Toilet # Unmeasured Voids Void 1 1 Bowel Movement No No No Height 5 ft 8 in Body Mass Index (BMI) 19.0 Active Medications Aspirin (Asa -) 81 mg PO DAILY [facility] Last Admin: 03/23/19 09:20 Dose: 81 mg Atorvastatin Calcium (Lipitor -) 40 mg PO HS [facility] Last Admin: 03/22/19 21:32 Dose: 40 mg Clopidogrel Bisulfate (Plavix -) 75 mg PO DAILY [facility] Last Admin: 03/23/19 09:20 Dose: 75 mg Ramipril (Altace -) 2.5 mg PO DAILY [facility] Last Admin: 03/23/19 09:20 Dose: 2.5 mg CBC, BMP 03/20/19 05:30 03/20/19 05:20 Physical Exam awake/ comfortable s1 s2 RRR Lungs - clear Abd- soft, NT no edema no nystagmus PLAN Acute CVA Lung CA COPD r/o parox Afib -- brain MRI noted-- multiple infarcts \-- Agree with ERNA -- recommended by Cardiology-- as outpt --- Pt's stated that he had a previous CT head >1 year ago, did show a stroke- unsure which one -- telemetry -- head CTA noted-- no aneurysms -- Added Plavix -- Hematology eval for hypercoagulable state due to Lung CA -- pending -- pt sees an oncologist at [facility] [place] -- continue present care - will follow Problem List - Problems (1) Lung cancer Code(s): C34.90 - MALIGNANT NEOPLASM OF UNSP PART OF UNSP BRONCHUS OR LUNG Qualifiers: Laterality: unspecified laterality (2) Cerebrovascular accident (CVA) Code(s): I63.9 - CEREBRAL INFARCTION, UNSPECIFIED Qualifiers: CVA mechanism: unspecified Qualified Code(s): I63.9 - Cerebral infarction, unspecified (3) Dizziness Code(s): R42 - DIZZINESS AND GIDDINESS Hematology consult pending will follow
--- NOTE | 2019-03-23 13:34 | CONSULT ---
Consultation: REQUESTING PROVIDER: CONSULT REQUEST: We have been asked to medically evaluate this patient for heme/ onc HISTORY OF PRESENT ILLNESS: 69 y/o M w/PMH of lung CA (adenoCA, R apical lung mass s/p chemo and rad; 33 rad tx last done 1 yr ago. sx was done 5.5 yrs ago), possible CVA/TIA 1 yr ago, HTN, COPD (not on home O2), skin ca of nose presented to the ED c/o worsening dizziness, dysarthria, blurred vision x 1 day duration. He was seen by his PCP Dr. Cruz who noted worsening of his baseline dysarthria and sent him to the ER. He reports blurry vision for the last 3 months and numbness around his mouth since 1 month ago and recently he had difficulty driving due to dizziness which prompted him to see his PCP. He reports that this dizziness started approx 1 year ago while at [facility] for check up on his lung ca. Heme consulted for hx of lung ca and possible hypercoagulable state. PMH:lung CA (adenoCA), possible CVA/TIA, COPD (not on home O2), skin ca of nose PSHx: lung mass surgery 5-6 years ago. SH: Smokes approx 5cig/day for last 40 years. Social alcohol use. Denies drug use. FH: Mother - colon ca. Sister- breast ca. Allergies: NKDA REVIEW OF SYSTEMS: CONSTITUTIONAL: Absent: fever, chills HEENT: +blurry vision Absent: rhinorrhea, nasal congestion CARDIOVASCULAR: Absent: chest pain, peripheral edema RESPIRATORY: Absent: cough, SOB GASTROINTESTINAL: Absent: abdominal pain, nausea, vomiting GENITOURINARY: Absent: dysuria, hematuria SKIN: Absent: rash, itching, pallor NEUROLOGIC: +dizziness, dyarthria PHYSICAL EXAMINATION Vital Signs - 24 hr 03/22/19 03/22/19 03/22/19 14:09 18:00 20:21 Temperature 98.2 F 98.3 F Pulse Rate 59 L 53 L Respiratory 16 18 18 Rate Blood Pressure 106/57 L 118/65 O2 Sat by Pulse 97 Oximetry (%) 03/22/19 03/23/19 03/23/19 22:00 02:00 06:00 Temperature 98.1 F 98.0 F 98.1 F Pulse Rate 60 59 L 84 Respiratory 18 18 18 Rate Blood Pressure 118/60 152/83 127/82 O2 Sat by Pulse Oximetry (%) 03/23/19 03/23/19 09:00 10:00 Temperature 98.2 F Pulse Rate 73 Respiratory 18 Rate Blood Pressure 138/77 O2 Sat by Pulse 96 Oximetry (%) GENERAL: Awake, alert, and fully oriented, in no acute distress. HEAD: Normal with no signs of trauma. EYES: Pupils equal, round and reactive to light, extraocular movements intact, sclera anicteric, conjunctiva clear. No lid lag. EARS, NOSE, THROAT: Ears normal, nares patent, oropharynx clear without exudates. Moist mucous membranes. NECK: Normal range of motion, supple without lymphadenopathy, JVD, or masses. LUNGS: Breath sounds equal, clear to auscultation bilaterally. No wheezes, and no crackles. No accessory muscle use. HEART: Regular rate and rhythm, normal S1 and S2 without murmur, rub or gallop. ABDOMEN: Soft, nontender, not distended, normoactive bowel sounds, no guarding, no rebound, no masses. No hepatomegaly or splenomegaly. MUSCULOSKELETAL: Normal range of motion at all joints. No bony deformities or tenderness. No CVA tenderness. UPPER EXTREMITIES: 2+ pulses, warm, well-perfused. No cyanosis. No clubbing. Cap refill <2 seconds. No peripheral edema. LOWER EXTREMITIES: 2+ pulses, warm, well-perfused. No calf tenderness. No peripheral edema. NEUROLOGICAL: Cranial nerves II-XII intact. Normal speech. Normal gait. PSYCHIATRIC: Cooperative. Good eye contact. Appropriate mood and affect. SKIN: Warm, dry, normal turgor, no rashes or lesions noted. Active Medications Generic Name Dose Route Start Last Admin Trade Name Freq PRN Reason Stop Dose Admin Aspirin 81 mg 03/20/19 00:38 03/23/19 09:20 Asa - PO 81 mg DAILY [facility] Administration Atorvastatin Calcium 40 mg 03/20/19 00:38 03/22/19 21:32 Lipitor - PO 40 mg HS [facility] Administration Clopidogrel Bisulfate 75 mg 03/22/19 10:15 03/23/19 09:20 Plavix - PO 75 mg DAILY [facility] Administration Ramipril 2.5 mg 03/21/19 12:30 03/23/19 09:20 Altace - PO 2.5 mg DAILY [facility] Administration ASSESSMENT/PLAN: 69 y/o M w/PMH of lung CA (adenoCA, R apical lung mass s/p chemo and rad; 33 rad tx last done 1 yr ago. sx was done 5.5 yrs ago), possible CVA/TIA 1 yr ago, HTN, COPD (not on home O2), skin ca of nose presented to the ED c/o worsening dizziness, dysarthria, blurred vision x 1 day duration. Heme consulted for hx of lung ca and possible hypercoagulable state. Lung ca Hx of skin ca CVA/TIA -Will need staging information for lung ca. Will get CT w/contrast of chest and abd/pelvis -Will need to f/u with his oncologist -At this time c/w plavix, asa. Dispo: We will continue to follow the patient. Thank you for this consultative opportunity. Visit type - Emergency Visit Emergency Visit: Yes ED Registration Date: 03/20/19 Care time: The patient presented to the Emergency Department on the above date and was hospitalized for further evaluation of their emergent condition. - New Patient This patient is new to me today: Yes Date on this admission: 03/23/19 - Critical Care Critical Care patient: No
--- NOTE | 2019-03-23 20:24 | PN ---
Teaching Attending Note Name of Resident: René Urena ATTENDING PHYSICIAN STATEMENT I saw and evaluated the patient. I reviewed the resident's note and discussed the case with the resident. I agree with the resident's findings and plan as documented. ASSESSMENT AND PLAN: 69 y/o M w/PMH of lung CA (adenoCA, R apical lung mass s/p chemo and rad; followed by surgery 6 yrs. ago), possible CVA/TIA 1 yr ago, HTN, COPD (not on home O2), skin cancer presented to the ED c/o worsening dizziness, dysarthria, blurred vision x 1 day duration. 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 1. 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 Lung CA 3. COPD We have been consulted for hx of lung ca and possible hypercoagulable state. lung CA (adenoCA, R apical lung mass s/p chemo and rad; followed by surgery 6 yrs. ago). Last seen in f/u at [facility] 4 onths ago per patient and was told that he continues to be in remission Will check CT c/a/p -- to assess disease status will need to contact patients primary oncologist ---patient unsure about his name. will get info from family
[2019-03-23] MEDS: ATORVASTATIN CA 40 MG TABLET (FP) PO SCH (20:59)
--- NOTE | 2019-03-24 08:34 | PN ---
Progress Note, Physician - Current Medication List Current Medications: Active Medications Aspirin (Asa -) 81 mg PO DAILY [facility] Last Admin: 03/23/19 09:20 Dose: 81 mg Atorvastatin Calcium (Lipitor -) 40 mg PO HS [facility] Last Admin: 03/23/19 20:59 Dose: 40 mg Clopidogrel Bisulfate (Plavix -) 75 mg PO DAILY [facility] Last Admin: 03/23/19 09:20 Dose: 75 mg Ramipril (Altace -) 2.5 mg PO DAILY [facility] Last Admin: 03/23/19 09:20 Dose: 2.5 mg - Objective Vital Signs: Vital Signs Temperature 98.0 F 03/24/19 06:00 Pulse Rate 52 L 03/24/19 06:00 Respiratory Rate 20 03/24/19 06:00 Blood Pressure 157/69 03/24/19 06:00 O2 Sat by Pulse Oximetry (%) 97 03/23/19 19:54 Eyes: Yes: WNL, Conjunctiva Clear, EOM Intact HENT: Yes: WNL, Atraumatic, Normocephalic Neck: Yes: WNL, Supple, Trachea Midline Cardiovascular: Yes: WNL, Regular Rate and Rhythm Respiratory: Yes: WNL, Regular, CTA Bilaterally Gastrointestinal: Yes: WNL, Normal Bowel Sounds Genitourinary: Yes: WNL Musculoskeletal: Yes: WNL Extremities: Yes: WNL Edema: No Integumentary: Yes: WNL ...Motor Strength: WNL Psychiatric: Yes: WNL Labs: CBC, BMP 03/20/19 05:30 03/20/19 05:20 INR, PTT INR 0.97 (0.83-1.09) 03/19/19 19:04 Assessment/Plan Assessment/Plan 03/20/2019 Echo: Normal LV size and fxn LVEF 50%, impaired LV relaxation, normal RV size and fxn, tr MR, tr-mild TR 03/20/2019 Brain MRI: Several acute right cerebellar strokes, punctate acute left occipital infarct, small chronic bilaterak cerebellar strokes, left parietotemporal chronic microbleed 03/20/2019 Head CTA: NO P comm aneurysm but does 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 1. 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 Lung CA 3. COPD P:1. patient monitor negative for PAF thus far, may benefit from prolonged arrhythmia monitor if unrevealing 2. Continue ASA 81 qd, Lipitor 40 qhs, ramipril 2.5 qd with uptitration as tolerated, started Plavix 75 qd per neuro recs 3. Consider ERNA to r/o ROSITA thrombus as outpatient. coverage for dr. Ji
--- NOTE | 2019-03-24 09:20 | PN ---
Progress Note (short form) - Note Progress Note: feels well no complains oncology consult noted/ appreciated Vital Signs Temp 98.0 F 03/24/19 06:00 Pulse 52 L 03/24/19 06:00 Resp 20 03/24/19 06:00 BP 157/69 03/24/19 06:00 Pulse Ox 97 03/23/19 19:54 Intake & Output 03/23/19 03/23/19 03/24/19 11:59 23:59 11:59 Intake Total 490 1155 Output Total 400 Balance 90 1155 Intake: IV 10 RFA #22 03/23/2019 10 Oral 490 1145 Output: Urine 400 Void 400 Other: Voiding Method Toilet Toilet Toilet # Unmeasured Voids Void 1 1 2 Bowel Movement No No Active Medications Aspirin (Asa -) 81 mg PO DAILY [facility] Last Admin: 03/23/19 09:20 Dose: 81 mg Atorvastatin Calcium (Lipitor -) 40 mg PO HS [facility] Last Admin: 03/23/19 20:59 Dose: 40 mg Clopidogrel Bisulfate (Plavix -) 75 mg PO DAILY [facility] Last Admin: 03/23/19 09:20 Dose: 75 mg Ramipril (Altace -) 2.5 mg PO DAILY [facility] Last Admin: 03/23/19 09:20 Dose: 2.5 mg CBC, BMP 03/20/19 05:30 03/20/19 05:20 ct chest/ abd/ pelvis-- Done - report pending Physical Exam awake/ comfortable s1 s2 RRR Lungs - clear Abd- soft, NT no edema no nystagmus PLAN Acute CVA Lung CA COPD r/o parox Afib -- brain MRI noted-- multiple infarcts \-- Agree with ERNA -- recommended by Cardiology-- as outpt clinically stable f/u ct scans if no major issues and cleared by Hematology-- will d/c later today Further work up as out pt/ with his pmd/ f/u with specialists discussed with pt and nursing staff Anticipate d/c later today will follow
--- NOTE | 2019-03-24 09:21 | DS ---
Physical Examination Vital Signs: Vital Signs Temperature 98.0 F 03/24/19 06:00 Pulse Rate 52 L 03/24/19 06:00 Respiratory Rate 20 03/24/19 06:00 Blood Pressure 157/69 03/24/19 06:00 O2 Sat by Pulse Oximetry (%) 97 03/23/19 19:54 Findings/Remarks: see today progress note Labs: CBC, BMP 03/20/19 05:30 03/20/19 05:20 Discharge Summary Reason For Visit: DIZZINESS,CEBREBALVASCULAR ACCIDENT (CVA) Current Active Problems COPD (chronic obstructive pulmonary disease) (Acute) Cerebrovascular accident (CVA) (Acute) Diplopia (Acute) Dizziness (Acute) HTN (hypertension) (Acute) Lung cancer (Acute) Hospital Course: admitted for acue cva neurology followed work up also showed no evidence of metastatic disease stable f/u as out pt with his pmd/ neurology , cardiology -- ERNA as out pt as well as Oncology Discussed with Pt Discussed with nursing staff also meds reconcilled Condition: Guarded - Instructions Disposition: HOME - Home Medications Comprehensive Discharge Medication List: Ambulatory Orders Aspirin [ASA -] 81 mg PO DAILY 03/19/19 Atorvastatin Ca [Lipitor] 40 mg PO HS #30 tablet 03/24/19 Clopidogrel Bisulfate [Plavix -] 75 mg PO DAILY 30 Days #30 tablet 03/24/19 Ramipril [Altace] 2.5 mg PO DAILY 30 Days #30 capsule 03/24/19
--- NOTE | 2019-03-24 09:22 | DS ---
Physical Examination Vital Signs: Vital Signs Temperature 98.0 F 03/24/19 06:00 Pulse Rate 52 L 03/24/19 06:00 Respiratory Rate 20 03/24/19 06:00 Blood Pressure 157/69 03/24/19 06:00 O2 Sat by Pulse Oximetry (%) 97 03/23/19 19:54 Labs: CBC, BMP 03/20/19 05:30 03/20/19 05:20 Discharge Summary Reason For Visit: DIZZINESS,CEBREBALVASCULAR ACCIDENT (CVA) Current Active Problems COPD (chronic obstructive pulmonary disease) (Acute) Cerebrovascular accident (CVA) (Acute) Diplopia (Acute) Dizziness (Acute) HTN (hypertension) (Acute) Lung cancer (Acute) Condition: Guarded - Instructions - Home Medications Comprehensive Discharge Medication List: Ambulatory Orders Aspirin [ASA -] 81 mg PO DAILY 03/19/19 Atorvastatin Ca [Lipitor] 40 mg PO HS #30 tablet 03/24/19 Clopidogrel Bisulfate [Plavix -] 75 mg PO DAILY 30 Days #30 tablet 03/24/19 Ramipril [Altace] 2.5 mg PO DAILY 30 Days #30 capsule 03/24/19
[2019-03-24] MEDS: RAMIPRIL 2.5 MG CAPSULE (FP) PO SCH (09:40)
[2019-03-24] MEDS: CLOPIDOGREL BISULFATE 75 MG TABLET (FP) PO SCH (09:40)
[2019-03-24] MEDS: ASPIRIN 81 MG CHEWABLE TABLETS PO SCH (09:40)
[2019-03-24 11:42] LABS: ANION GAP 6 MMOL/L (8-16); BLOOD UREA NITROGEN 16 mg/dL (7-18); CALCIUM 8.4 mg/dL (8.5-10.1); CHLORIDE 104 mmol/L (98-107); CO2 30 mmol/L (21-32); CREATININE 0.9 mg/dL (0.55-1.3); GLUCOSE,RANDOM 78 mg/dL (74-106); POTASSIUM 4.5 mmol/L (3.5-5.1); SODIUM 139 mmol/L (136-145)
[2019-03-24 14:42] VITALS: BP 93/53; PULSE 58; TEMP 98.4
--- NOTE | 2019-03-24 18:09 | PN ---
Progress Note (short form) - Note Progress Note: CT report noted. No evidence of metastatic disease. Postsurgical changes (no interval comparison at [facility]) and adrenal thickening noted. Please ensure that pt' s primary oncologist at [facility] gets the report to compare to prior scans and determine whether any work-up is needed. No need for further inpatient w/u on this admission.
== END 2019-03-24 18:59 | disposition home or self-care (01) | DRG 65 ==
LOC: JER 18:42 → JERBED 23:48 → OBSVTOIN 03-20 11:16 → J4S 03-20 17:45
PROVIDERS: ADMIT Internal Medicine; ATTEND Internal Medicine
DX: I63.9 Cerebral infarction, unspecified (principal); I62.9 Nontraumatic intracranial hemorrhage, unspecified; I65.01 Occlusion and stenosis of right vertebral artery; I10 Essential (primary) hypertension; J44.9 Chronic obstructive pulmonary disease, unspecified; H53.8 Other visual disturbances; H53.2 Diplopia; G58.8 Other specified mononeuropathies; Z85.828 Personal history of other malignant neoplasm of skin; Z85.118 Personal history of other malignant neoplasm of bronchus and lung
CPT/HCPCS: 36415; 70450-TC; 70496-TC; 70553-TC; 71045-TC-FY; 71260-TC; 74177-TC; 80048; 80053; 80061; 81003; 82550; 83036; 83519; 83721; 83735; 84100; 84484; 85025; 85610; 86850; 86900; 86901; 93005; 93010; 93306-TC; 93880-TC; 97116-GP; 97161-GP; 99284-25; G0378

== ENCOUNTER 2019-04-07 11:38 | Inpatient (IN) | payer BC ==
[2019-04-07 11:47] VITALS: BMI 20.6
[2019-04-07] MEDS ORDERED: SODIUM CHLORIDE 1,000 ML IV STA (12:21)
--- NOTE | 2019-04-07 12:39 | PDOC ---
History of Present Illness - General Chief Complaint: Vomiting Blood Stated Complaint: BLEEDING Time Seen by Provider: 04/07/19 12:04 History Source: Patient, Family - History of Present Illness Initial Comments: 04/07/19 13:29 Patient is a 69M with history of CVA, lung cancer s/p chemotherapy and surgery, HTN, COPD here today with his after he told her that he wanted to by hanging himself in his garage. His also states that he hasn't been eating and is sleeping 20+ hours per day. The patient states that he wants to . Denies pain, denies overdose, denies prior attempts and psych history. Patient' s reports that he woke up with a small amount of blood on a pillowcase yesterday. Patient denies nausea, vomiting, diarrhea and blood in stool. Denies chest pain, shortness of breath, leg swelling, history of blood clots. Take plavix, no other blood thinners. Denies headache, neck pain, abdominal pain. Past History - Past Medical History Allergies/Adverse Reactions: Allergies Allergy/AdvReac Type Severity Reaction Status Date / Time No Known Allergies Allergy Verified 04/07/19 13:09 Home Medications: Ambulatory Orders Aspirin [ASA -] 81 mg PO DAILY 03/19/19 Atorvastatin Ca [Lipitor] 40 mg PO HS #30 tablet 03/24/19 Clopidogrel Bisulfate [Plavix -] 75 mg PO DAILY 30 Days #30 tablet 03/24/19 Ramipril [Altace] 2.5 mg PO DAILY 30 Days #30 capsule 03/24/19 Brimonidine Tartrate [Alphagan P 0.1% -] 1 drop TID 04/07/19 Anemia: No Asthma: No Cancer: Yes (rt. lung(chemotherapy since 6 yrs ago)) Cardiac Disorders: No CVA: Yes (1 year ago) COPD: Yes (EMPHYSEMA) CHF: No Dementia: No Diabetes: No GI Disorders: No Disorders: No HTN: Yes Hypercholesterolemia: Yes Liver Disease: Yes ("SPOT ON LIVER") Seizures: No Thyroid Disease: Yes (H/O HYPERTHYROIDISM) - Surgical History Abdominal Surgery: No Appendectomy: No Cardiac Surgery: No Cholecystectomy: No Lung Surgery: No Neurologic Surgery: No Orthopedic Surgery: No - Immunization History Immunization Up to Date: Yes - Suicide/Smoking/Psychosocial Hx Smoking History: Former smoker Have you smoked in the past 12 months: No Number of Cigarettes Smoked Daily: 5 Information on smoking cessation initiated: No 'Breaking Loose' booklet given: 01/03/13 Hx Alcohol Use: No Drug/Substance Use Hx: No Substance Use Type: Alcohol Hx Substance Use Treatment: No Review of Systems - Review of Systems Able to Perform ROS?: Yes Comments:: 04/07/19 13:34 GENERAL/CONSTITUTIONAL: No fever or chills. No weakness. HEAD, EYES, EARS, NOSE AND THROAT: No change in vision. No sore throat. CARDIOVASCULAR: No chest pain or shortness of breath RESPIRATORY: No cough, wheezing, or hemoptysis. GASTROINTESTINAL: No nausea, vomiting, diarrhea or constipation. GENITOURINARY: No dysuria, frequency, or change in urination. MUSCULOSKELETAL: No joint or muscle swelling or pain. No neck or back pain. SKIN: No rash NEUROLOGIC: No headache, vertigo, loss of consciousness, or change in strength/ sensation. ENDOCRINE: No increased thirst. +weight loss HEMATOLOGIC/LYMPHATIC: No anemia, easy bleeding, or history of blood clots. ALLERGIC/IMMUNOLOGIC: No hives or skin allergy. *Physical Exam - Vital Signs Last Vital Signs Temp Pulse Resp BP Pulse Ox 98.5 F 77 16 91/53 L 99 04/07/19 11:44 04/07/19 11:44 04/07/19 11:44 04/07/19 11:44 04/07/19 11:44 - Physical Exam Comments: 04/07/19 13:35 GENERAL: Awake, alert, and fully oriented, in no acute distress HEAD: No signs of trauma, normocephalic, atraumatic EYES: PERRLA, EOMI, sclera anicteric, conjunctiva clear ENT: Auricles normal inspection, hearing grossly normal, nares patent, oropharynx clear without exudates. Moist mucosa NECK: Normal ROM, supple, no lymphadenopathy, JVD, or masses LUNGS: No distress, speaks full sentences, clear to auscultation bilaterally HEART: Regular rate and rhythm, normal S1 and S2, no murmurs, rubs or gallops, peripheral pulses normal and equal bilaterally. ABDOMEN: Soft, nontender, normoactive bowel sounds. No guarding, no rebound. No masses EXTREMITIES: Normal inspection, Normal range of motion, no edema. No clubbing or cyanosis. NEUROLOGICAL: Cranial nerves II through XII grossly intact. Normal speech, normal gait, no focal sensorimotor deficits SKIN: Warm, Dry, normal turgor, no rashes or lesions noted. PSYCH: +SI, no HI, tells people he wants to by hanging ED Treatment Course - LABORATORY CBC & Chemistry Diagram: 04/07/19 18:45 04/07/19 12:35 - RADIOLOGY Radiology Studies Ordered: Category Date Time Status CHEST X-RAY PORTABLE* [RAD] Stat Radiology 04/07/19 12:15 Ordered Medical Decision Making - Medical Decision Making 04/07/19 13:35 Patient is 69M with history of lung ca s/p chemo/surgery, cva, htn, copd here today with SI and blood found on pillowcase. Vitals show soft bp, otherwise normal. Patient not eating. Will workup for possible blood loss and have psych evaluate. Workup includes, cbc, cmp, pt/inr, ekg, cxr, ua. Psych paged. 04/07/19 14:55 CBC shows hgb of 11.5, last 13.2 on 03/20. Rectal exam shows normal rectal tone, no chan blood or masses. Stool for occult blood sent. CMP shows normal BUN, Cr 1.4, last 0.9, ua shows ketones, suspect dehydration. CXR shows no acute changes. EKG shows NSR with rate of 60. Two PVCs. No st elevations/depressions. Normal axis. Normal intervals. No significant t wave abnormalities. Psych consult shows concern patient is at high risk for suicide. Will obs patient for further workup of possible GI bleed. Will require transfer for psych clearance. 04/07/19 15:07 Stool for occult blood+, obs. *DC/Admit/Observation/Transfer Diagnosis at time of Disposition: Hemoglobin drop Suicidal behavior Qualifiers: Attempted self-injury: with attempted self-injury Qualified Code(s): T14.91XA - Suicide attempt, initial encounter - Discharge Dispostion Condition at time of disposition: Stable Decision to Admit order: Yes - Referrals - Patient Instructions - Post Discharge Activity
[2019-04-07 13:05] LABS: INR 1.02 (0.83-1.09)
[2019-04-07 13:07] LABS: HEMATOCRIT 35.1 % (35.4-49); HEMOGLOBIN 11.5 GM/dL (11.7-16.9); MCH 29.7 pg (25.7-33.7); MCHC 32.8 g/dl (32.0-35.9); MEAN CELL VOLUME 90.6 fl (80-96); MEAN PLT VOLUME 9.9 fl (7.5-11.1); PLATELET COUNT 316 K/MM3 (134-434); RBC 3.88 M/mm3 (4.00-5.60); RDW 14.4 % (11.9-15.9); WHITE BLOOD COUNT 7.7 K/mm3 (4.0-10.0)
[2019-04-07 13:31] LABS: ALBUMIN 3.6 g/dl (3.4-5.0); ALK PHOS 82 U/L (45-117); ANION GAP 6 MMOL/L (8-16); BILIRUBIN,TOTAL 0.3 mg/dL (0.2-1); BLOOD UREA NITROGEN 18 mg/dL (7-18); CALCIUM 8.5 mg/dL (8.5-10.1); CHLORIDE 105 mmol/L (98-107); CO2 28 mmol/L (21-32); CREATININE 1.4 mg/dL (0.55-1.3); GLUCOSE,RANDOM 133 mg/dL (74-106); POTASSIUM 4.4 mmol/L (3.5-5.1); SGOT/AST 10 U/L (15-37); SGPT/ALT 19 U/L (13-61); SODIUM 139 mmol/L (136-145); TOT PROT 6.6 g/dl (6.4-8.2)
[2019-04-07 13:44] LABS: HYALINE CASTS 40 /lpf (0-8); URINE APPEARANCE CLEAR; URINE BACTERIA 0.5 /hpf (NEGATIVE); URINE BILIRUBIN 2+ (NEGATIVE); URINE COLOR DK YELLOW; URINE GLUCOSE (UA) NEGATIVE (NEGATIVE); URINE KETONE 1+ (NEGATIVE); URINE LEUK ESTERASE 1+ (NEGATIVE); URINE NITRITE NEGATIVE (NEGATIVE); URINE PROTEIN 1+ (NEGATIVE); URINE RBC 4 /hpf (0-4); URINE WBC 4 /hpf (0-5)
[2019-04-07 13:55] LABS: COCAINE, UR NEGATIVE ng/ml (CUTOFF=300); METHADONE, UR NEGATIVE ng/ml (CUTOFF=300); OPIATES, URI NEGATIVE ng/ml (CUTOFF=300); PHENCYCLIDINE,URINE NEGATIVE ng/ml (CUTOFF=25); URINE AMPHETAMINES NEGATIVE ng/ml (CUTOFF=500); URINE BARBITURATES NEGATIVE ng/ml (CUTOFF=200); URINE BENZODIAZEPINES NEGATIVE ng/ml (CUTOFF=200)
--- NOTE | 2019-04-07 14:55 | PDOC ---
Documentation entered by Karina Saul SCRIBE, acting as scribe for Mark Cuellar MD. Mark Cuellar MD: This documentation has been prepared by the ruddyibe, Karina Saul SCRIBE, under my direction and personally reviewed by me in its entirety. I confirm that the documentation accurately reflects all work, treatment, procedures, and medical decision making performed by me. Attending Attestation - Resident Resident Name: Dino Gooden - ED Attending Attestation I have performed the following: I have examined & evaluated the patient, The case was reviewed & discussed with the resident, I agree w/resident's findings & plan, Exceptions are as noted - HPI HPI: 04/07/19 14:22 The patient is a 69 year old male with a significant past medical history of lung ca, hypertension, TIA, COPD and a recent stroke who presents to who presents to the emergency department with complaint of having found blood on his pillowcase. Pt denies any vomiting, but does endorse having some dark colored well formed stool 2-3 days ago. pt narciso any cp, lightheadedness, fever/ chills, palpitations. +social etoh, denies abuse denies nsaid abuse - Physicial Exam PE: 04/07/19 15:26 GENERAL: The patient is awake, alert, HEAD: Normocephalic, atraumatic. EYES: extraocular movements intact, sclera anicteric, conjunctiva clear. ENT: Normal voice, Moist mucous membranes. NECK: Normal range of motion, supple LUNGS: Breath sounds equal, clear to auscultation bilaterally. No wheezes, no rhonchi, no rales. HEART: Regular rate and rhythm, normal S1 and S2 without murmur, rub or gallop. ABDOMEN: Soft, nontender, No guarding, no rebound. . No CVA tenderness EXTREMITIES: Normal range of motion, no edema. NEUROLOGICAL: No facial assymetry, Normal speech, PSYCH: Normal mood, normal affect, endorses SI SKIN: Warm, Dry, normal turgor, - Medical Decision Making 04/07/19 12:34 69y M hx of cva(recent hospitalization d/c on 03/24), lung ca sp chemo, cad, htn, copd presents with complaint of having found blood on a pillow case - pt denies any n/v, cough will obtain blood work pt placed on 1:1 for SI will consult psych EXAM: RAD/CHEST X-RAY PORTABLE* Impression: No acute change since prior study of 03/19/2019. Chronic findings right hemithorax with postsurgical changes. Left port. No acute pathology appreciated. Reported By: Zachery Molina MD 04/07/19 14:45 Call placed to Psych ( KADEEM Moraes) @ 12:26 pm and case discussed. 04/07/19 15:31 evaluated by KADEEM Moraes - pt requires psych admission pt also noted to be anemic and is guaiac + will husam for medical workp Heart Score/ECG Review - ECG Impressions Comment:: 04/07/19 15:38 Twelve-lead EKG was performed and reviewed by me. There is normal sinus rhythm with a normal rate. Rate of 60 Short MS interval Normal axis Occasional PVCs
--- NOTE | 2019-04-07 15:02 | PN ---
Mental Health Exam - Mental Status Exam Alert and Oriented to: Time (alert but unco-operative. ) Cognitive Function: Grossly Intact Patient Appearance: Unkempt, Disheveled (un shaven, turned over on streatcher with Anette in room with constant observation staff. ) Mood: Angry, Apathetic, Depressed, Withdrawn, Irritable Affect: Flat, Constricted Patient Behavior: Dependent, Uncooperative, Guarded, Impulsive Speech Pattern: Tangential Voice Loudness: Mildly Loud Thought Process: Disorganized, Disoriented Thought Disorder: Not Present Hallucinations: Denies Suicidal Ideation: Current (Today, plan to jump out of car, while in passenger seat. ), Plan Homicidal Ideation: Denies (But has threatned with in past. ) Insight/Judgement: Impaired Sleep: Poorly (over sleep for 2 days without eating. ) Appetite: Weight loss Muscle strength/Tone: Normal Gait/Station: Deferred
--- NOTE | 2019-04-07 15:19 | PN ---
Progress Note, Physician Chief Complaint: This is a 69 yo Pedro male with a history of Lung ca for past 7 years. He is brought in to ER after he was noted to have blood on pillow this morning. While in transport here, he threatened to jump out of the car. He has surgery at [facility], with psychiatry follow up, which he did not make appointment. In past was recommended to have amytryptaline and klonopin. No psychiatric admissions. His is main historian as he is un co-operative. She found him in garage with rope on neck, attached to rafters. She lamented that he has recently stated that "I will take all his pills together to kill myself " . She is fearful to leave him alone due to his suicide wish/ plans. Denies having any gun or access to a gun. She Is oversleeping, poor appetite, extremely irritable,anxious, nervous, depressed, worsening in past year. He is very verbally abusive to family that is worsening recently. His is suffering caregiver stress, anxiety and his daughter suffers from depression. He has alchol abuse history, denies other drugs. He is seeking a Sleep Aid. - Objective Vital Signs: Vital Signs Temperature 98.5 F 04/07/19 11:44 Pulse Rate 77 04/07/19 11:44 Respiratory Rate 16 04/07/19 11:44 Blood Pressure 91/53 L 04/07/19 11:44 O2 Sat by Pulse Oximetry (%) 99 04/07/19 11:44 Psychiatric: Yes: Alert, Suicidal Ideation Labs: CBC, BMP 04/07/19 12:35 04/07/19 13:23 INR, PTT INR 1.02 (0.83-1.09) 04/07/19 12:35 Problem List - Problems (1) Major depression Code(s): F32.9 - MAJOR DEPRESSIVE DISORDER, SINGLE EPISODE, UNSPECIFIED Qualifiers: Major depression recurrence: recurrent Active/Remission status: currently active Major depression episode severity: severe Psychotic features: without psychotic features Qualified Code(s): F33.2 - Major depressive disorder, recurrent severe without psychotic features (2) Suicidal behavior Code(s): R46.89 - OTHER SYMPTOMS AND SIGNS INVOLVING APPEARANCE AND BEHAVIOR Qualifiers: Attempted self-injury: with attempted self-injury Qualified Code(s): T14.91XA - Suicide attempt, initial encounter
[2019-04-07 18:50] LABS: HEMATOCRIT 33.6 % (35.4-49); HEMOGLOBIN 10.9 GM/dL (11.7-16.9); MCH 29.5 pg (25.7-33.7); MCHC 32.5 g/dl (32.0-35.9); MEAN CELL VOLUME 90.6 fl (80-96); MEAN PLT VOLUME 9.5 fl (7.5-11.1); PLATELET COUNT 288 K/MM3 (134-434); RDW 14.2 % (11.9-15.9); WHITE BLOOD COUNT 7.2 K/mm3 (4.0-10.0)
[2019-04-07] MEDS: PANTOPRAZOLE SODIUM 40 MG VIAL IVPUSH SCH (22:02)
[2019-04-08 07:10] LABS: BASO % 1.3 % (0-2.0); EOS % 2.5 % (0-4.5); HEMATOCRIT 32.2 % (35.4-49); HEMOGLOBIN 10.8 GM/dL (11.7-16.9); LYMPH % 28.4 % (8-40); MCHC 33.4 g/dl (32.0-35.9); MEAN CELL VOLUME 89.8 fl (80-96); MEAN PLT VOLUME 9.5 fl (7.5-11.1); MONO % 8.1 % (3.8-10.2); NEUT % 59.7 % (42.8-82.8); PLATELET COUNT 270 K/MM3 (134-434); RBC 3.59 M/mm3 (4.00-5.60); RDW 14.3 % (11.9-15.9); WHITE BLOOD COUNT 6.8 K/mm3 (4.0-10.0)
[2019-04-08 07:24] LABS: CALCIUM 8.1 mg/dL (8.5-10.1); CREATININE 0.9 mg/dL (0.55-1.3); POTASSIUM 4.5 mmol/L (3.5-5.1)
[2019-04-08] MEDS: PANTOPRAZOLE SODIUM 40 MG VIAL IVPUSH SCH ×2 (09:32→21:16)
--- NOTE | 2019-04-08 09:39 | CON.GI ---
Consult Consult Specialty:: GI Referred by:: Dr. 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 I think there was a small amount of blood on my pillow History of Present Illness: 69M admitted for evaluation as his though there was blood on his pillow. He also expressed suicidal ideations. He describes his stool as being black after his recent discharge 03/24/19. 03/20 was 13.2. Today it is 10.8. He was started on ASA/Plavix last admission. He was not started on GI prophylaxis He denies nausea, vomiting, hematemesis, rectal bleeding, lightheadedness/ dizziness. He has never had an upper endoscopy and cannot remember if he had a colonoscopy. There is no family history of colorectal cancer. 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 Cardio/Vascular: Yes: HTN Pulmonary: Yes: Cancer (Right lung, s/p resection, radiation 2013), COPD Dermatology: Yes: Other (Skin cancer (unkown BCC vs SCC)) - Past Surgical History Additional Surgical History: Lung resection secondary to lung ca - Alcohol/Substance Use Hx Alcohol Use: No History of Substance Use: reports: None - Smoking History Smoking history: Former smoker Have you smoked in the past 12 months: No Aproximately how many cigarettes per day: 5 - Social History Usual Living Arrangement: With Spouse ADL: Independent 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year[place] 1979 History of Recent Travel: No Home Medications - Allergies Allergies/Adverse Reactions: Allergies Allergy/AdvReac Type Severity Reaction Status Date / Time No Known Allergies Allergy Verified 04/07/19 13:09 - Home Medications Home Medications: Ambulatory Orders Aspirin [ASA -] 81 mg PO DAILY 03/19/19 Atorvastatin Ca [Lipitor] 40 mg PO HS #30 tablet 03/24/19 Clopidogrel Bisulfate [Plavix -] 75 mg PO DAILY 30 Days #30 tablet 03/24/19 Ramipril [Altace] 2.5 mg PO DAILY 30 Days #30 capsule 03/24/19 Brimonidine Tartrate [Alphagan P 0.1% -] 1 drop TID 04/07/19 Family Disease History - Family Disease History Family Disease History: CA: Mother (: 59 Liver cancer), Other: Brother (1 of an unclear cancer, 1 in accident), Sister (1, healthy) Review of Systems - Review of Systems Constitutional: denies: Chills Cardiovascular: denies: Chest Pain Respiratory: denies: Cough, SOB Gastrointestinal: reports: Melena. denies: Abdominal Pain, Bloating, Constipation, Diarrhea, Nausea, Rectal Bleeding, Vomiting, Vomiting Blood Physical Exam-GI Vital Signs: Vital Signs Temperature 97.9 F 04/08/19 06:00 Pulse Rate 61 04/08/19 06:00 Respiratory Rate 16 04/08/19 06:00 Blood Pressure 147/79 04/08/19 06:00 O2 Sat by Pulse Oximetry (%) 96 04/08/19 06:00 Constitutional: Yes: Calm Eyes: No: Sclera Icterus Cardiovascular: Yes: Regular Rate and Rhythm. No: Murmur Respiratory: Yes: CTA Bilaterally Gastrointestinal Inspection: No: Distention, Scars ...Auscultate: Yes: Normoactive Bowel Sounds ...Palpate: Yes: Soft. No: Hepatomegaly, Splenomegaly, Tenderness ...Percussion: No: Tympanitic ...Rectal Exam: Yes: Other (No external lesions, no masses, dark brown stool, guaiac +) Edema: No (No) Neurological: Yes: Alert Labs: CBC, BMP 04/08/19 06:00 04/08/19 06:00 INR, PTT INR 1.02 (0.83-1.09) 04/07/19 12:35 Hepatic Panel Total Bilirubin 0.3 mg/dL (0.2-1) 04/07/19 12:35 AST 10 U/L (15-37) L 04/07/19 12:35 ALT 19 U/L (13-61) 04/07/19 12:35 Alkaline Phosphatase 82 U/L (45-117) 04/07/19 12:35 Albumin 3.6 g/dl (3.4-5.0) 04/07/19 12:35 Problem List - Problems (1) Melena Assessment/Plan: Patient gives history of melena and had been started on DAPT. Hemodynamic stability, stable H/H, no gross melena on exam and Normal BUN not suggestive of ongoing significant bleeding. Did discuss upper endoscopy to assess for lesion at high risk for rebleeding, particularly if it is felt that DAPT as opposed to monotherapy will need to be continued. Discussed potential risks of the procedure like but not limited to bleeding, perforation requiring surgery to repair, infection sedation medication effects all of which could be potentially life threatening. He has agreed to the procedure. For now: Clear liquids BID PPI ordered yesterday Monitor H/H and for signs of overt ongoing GI bleed If medically cleared given recent CVA, for EGD 04/09 Code(s): K92.1 - MELENA
--- NOTE | 2019-04-08 11:39 | HP ---
Admitting History and Physical - Primary Care Physician PCP: Antonino Florian - Admission History of Present Illness: pt seen/ examined today chart reviewed events noted/ all consults noted / appreciated The patient is a 69 year old male with a significant past medical history of lung ca, hypertension, TIA, COPD and a recent stroke who presents to who presents to the emergency department with complaint of having found blood on his pillowcase. Pt denies any vomiting, but does endorse having some dark colored well formed stool 2-3 days ago. pt denies any cp, lightheadedness, fever /chills, palpitations. pt seen by gi-- egd planned for tomorrow asa/plavix held on protonix drip pt also 1: ! sitter-- as he has expressed suicidal thoughts-- seen by psych. 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 Cardiovascular: Yes: HTN Pulmonary: Yes: Cancer (Right lung, s/p resection, radiation 2013), COPD Heme/Onc: Yes: Cancer (Skin CA) Dermatology: Yes: Other (Skin cancer (unkown BCC vs SCC)) - Smoking History Smoking history: Former smoker Have you smoked in the past 12 months: No Aproximately how many cigarettes per day: 5 - Alcohol/Substance Use Hx Alcohol Use: No History of Substance Use: reports: None - Social History ADL: Independent 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 History of Recent Travel: No Home Medications - Allergies Allergies/Adverse Reactions: Allergies Allergy/AdvReac Type Severity Reaction Status Date / Time No Known Allergies Allergy Verified 04/07/19 13:09 - Home Medications Home Medications: Ambulatory Orders Aspirin [ASA -] 81 mg PO DAILY 03/19/19 Atorvastatin Ca [Lipitor] 40 mg PO HS #30 tablet 03/24/19 Clopidogrel Bisulfate [Plavix -] 75 mg PO DAILY 30 Days #30 tablet 03/24/19 Ramipril [Altace] 2.5 mg PO DAILY 30 Days #30 capsule 03/24/19 Brimonidine Tartrate [Alphagan P 0.1% -] 1 drop TID 04/07/19 Family Disease History - Family Disease History Family Disease History: CA: Mother (: 59 Liver cancer), Other: Brother (1 of an unclear cancer, 1 in accident), Sister (1, healthy) Review of Systems Findings/Remarks: see [facility] Physical Examination Vital Signs: Vital Signs Temperature 98.5 F 04/08/19 10:00 Pulse Rate 61 04/08/19 10:00 Respiratory Rate 18 04/08/19 10:00 Blood Pressure 136/71 04/08/19 10:00 O2 Sat by Pulse Oximetry (%) 97 04/08/19 09:00 Constitutional: Yes: No Distress, Calm Eyes: Yes: Conjunctiva Clear Neck: Yes: Supple Cardiovascular: Yes: Regular Rate and Rhythm Respiratory: Yes: CTA Bilaterally Gastrointestinal: Yes: Soft Edema: No Neurological: Yes: Alert Psychiatric: Yes: Alert Labs: CBC, BMP 04/08/19 06:00 04/08/19 06:00 Imaging - Results Chest X-ray: Report Reviewed Problem List - Problems (1) Hemoglobin drop Code(s): R71.0 - PRECIPITOUS DROP IN HEMATOCRIT (2) Major depression Code(s): F32.9 - MAJOR DEPRESSIVE DISORDER, SINGLE EPISODE, UNSPECIFIED Qualifiers: Major depression recurrence: recurrent Active/Remission status: currently active Major depression episode severity: severe Psychotic features: without psychotic features Qualified Code(s): F33.2 - Major depressive disorder, recurrent severe without psychotic features (3) Suicidal behavior Code(s): R46.89 - OTHER SYMPTOMS AND SIGNS INVOLVING APPEARANCE AND BEHAVIOR Qualifiers: Attempted self-injury: with attempted self-injury Qualified Code(s): T14.91XA - Suicide attempt, initial encounter (4) COPD (chronic obstructive pulmonary disease) Code(s): J44.9 - CHRONIC OBSTRUCTIVE PULMONARY DISEASE, UNSPECIFIED Qualifiers: COPD type: unspecified COPD Qualified Code(s): J44.9 - Chronic obstructive pulmonary disease, unspecified (5) Cerebrovascular accident (CVA) Code(s): I63.9 - CEREBRAL INFARCTION, UNSPECIFIED Qualifiers: CVA mechanism: unspecified Qualified Code(s): I63.9 - Cerebral infarction, unspecified (6) HTN (hypertension) Code(s): I10 - ESSENTIAL (PRIMARY) HYPERTENSION Qualifiers: Hypertension type: essential hypertension Qualified Code(s): I10 - Essential (primary) hypertension (7) Lung cancer Code(s): C34.90 - MALIGNANT NEOPLASM OF UNSP PART OF UNSP BRONCHUS OR LUNG Qualifiers: Laterality: unspecified laterality Assessment/Plan Discussed continue 1!1 sitter continue present care hold asa/plavix will ask neuro/cardio and oncology to follow also discussed with nursing staff will follow
--- NOTE | 2019-04-08 12:29 | EKG ---
Test Reason : Blood Pressure : / mmHG Vent. Rate : 060 BPM Atrial Rate : 060 BPM P-R Int : 102 ms QRS Dur : 092 ms QT Int : 420 ms P-R-T Axes : 039 044 039 degrees QTc Int : 420 ms SINUS RHYTHM WITH SHORT FL WITH OCCASIONAL PREMATURE VENTRICULAR COMPLEXES WHEN COMPARED WITH ECG OF 19-MAR-2019 19:00, PREMATURE VENTRICULAR COMPLEXES ARE NOW PRESENT Confirmed by PALMA RDZ MD ([id number]) on 04/08/2019 12:29:06 PM Referred By: Confirmed By:PALMA RDZ MD
[2019-04-08] MEDS: RAMIPRIL 2.5 MG CAPSULE (FP) PO SCH (14:52)
--- NOTE | 2019-04-08 20:38 | CONSULT ---
Consult Consult Specialty:: Oncology Referred by:: Dr Mclaughlin - History of Present Illness Chief Complaint: Blood on pillow History of Present Illness: 69M with HTN, COPD, lung adenoCA, R apical lung mass s/p chemo and rad; followed by surgery 6 yrs. ago, recent CVA admitted after finding blood on pillow. Unclear source. Pt denies vomiting, coughing, epistaxis and gum bleeding. Notes dark stools for 2 days. He is on plavix/asa. Planned for EGD. Oncology consulted due to hx of lung ca. Pt follows at [facility] [place]. Was told that he is VANESSA a few months ago. During CVA admission, CT chest/abd/pel showed no obvious evidence of disease. Postsurgical changes and mild right apical pleural thickening (also thought to be related to resection) were noted. No further episodes of bleeding. Has occasional cough without hemoptysis. 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 History of Recent Travel: No Home Medications - Allergies Allergies/Adverse Reactions: Allergies Allergy/AdvReac Type Severity Reaction Status Date / Time No Known Allergies Allergy Verified 04/07/19 13:09 - Home Medications Home Medications: Ambulatory Orders Aspirin [ASA -] 81 mg PO DAILY 03/19/19 Atorvastatin Ca [Lipitor] 40 mg PO HS #30 tablet 03/24/19 Clopidogrel Bisulfate [Plavix -] 75 mg PO DAILY 30 Days #30 tablet 03/24/19 Ramipril [Altace] 2.5 mg PO DAILY 30 Days #30 capsule 03/24/19 Brimonidine Tartrate [Alphagan P 0.1% -] 1 drop TID 04/07/19 Family Disease History - Family Disease History Family Disease History: CA: Mother (: 59 Liver cancer), Other: Brother (1 of an unclear cancer, 1 in accident), Sister (1, healthy) Review of Systems - Review of Systems Constitutional: denies: Fever, Night Sweats HENT: denies: Ear Discharge, Epistaxis, Gingival Bleeding, Throat Pain Cardiovascular: reports: No Symptoms Respiratory: reports: Cough. denies: Hemoptysis Gastrointestinal: denies: Abdominal Pain, Rectal Bleeding Genitourinary: denies: Hematuria Physical Exam Vital Signs: Vital Signs Temperature 98.5 F 04/08/19 10:00 Pulse Rate 61 04/08/19 10:00 Respiratory Rate 18 04/08/19 18:00 Blood Pressure 136/71 04/08/19 10:00 O2 Sat by Pulse Oximetry (%) 96 04/08/19 18:00 Constitutional: Yes: No Distress, Thin Eyes: Yes: Conjunctiva Clear Neck: Yes: Supple. No: Lymphadenopathy Cardiovascular: Yes: Regular Rate and Rhythm Respiratory: Yes: Regular, CTA Bilaterally Gastrointestinal: Yes: WNL, Soft Edema: No Labs: CBC, BMP 04/08/19 06:00 04/08/19 06:00 Assessment/Plan Agree with GI work up. There's currently no evidence of lung cancer recurrence. Patient should follow-up with his oncologist. Please ensure that patient receives disc with recent CT imaging so that it's available to his oncologist to compare (as interval f/u was recommended for focal pleural thickening that is is probably post-surgical but no prior CT available for comparison at [facility]).
[2019-04-08] MEDS: ATORVASTATIN CA 40 MG TABLET (FP) PO SCH (21:16)
[2019-04-08] MEDS: BRIMONIDINE TARTRATE 0.1% OPHTHALMIC 5 ML BOTTLE OD SCH (21:16)
--- NOTE | 2019-04-08 21:38 | PN ---
Mental Health Exam - Mental Status Exam Alert and Oriented to: Time, Place, Person Cognitive Function: Grossly Intact Patient Appearance: Unkempt Mood: Depressed, Anxious Affect: Appropriate Patient Behavior: Passive, Belligerent Speech Pattern: Clear Voice Loudness: Moderately Loud Thought Process: Intact Thought Disorder: Not Present Hallucinations: None, Denies Suicidal Ideation: Denies Homicidal Ideation: Denies Insight/Judgement: Fair Sleep: Poorly (request sleep aid. ) Appetite: Weight loss Muscle strength/Tone: Mild Hypotonicity Gait/Station: Deferred (follow up ......client denies Suicidal ideation.) Additional Comments: ON follow up.. Denies suicidal ideation currently. Still irritable and beligerent. offer trazadone 50 po hs for sleep.
[2019-04-08] MEDS ORDERED: BRIMONIDINE TARTRATE 0.1% OPHTHALMIC 5 ML BOTTLE OD SCH (22:00)
[2019-04-08] MEDS: traZODone HCL 50 MG TABLET (FP) PO SCH (22:16)
[2019-04-09] MEDS: BRIMONIDINE TARTRATE 0.1% OPHTHALMIC 5 ML BOTTLE OD SCH ×3 (06:34→22:53)
[2019-04-09 07:08] LABS: BASO % 1.7 % (0-2.0); HEMATOCRIT 32.3 % (35.4-49); HEMOGLOBIN 10.7 GM/dL (11.7-16.9); LYMPH % 25.1 % (8-40); MCH 29.6 pg (25.7-33.7); MCHC 33.2 g/dl (32.0-35.9); MEAN CELL VOLUME 89.1 fl (80-96); MEAN PLT VOLUME 9.3 fl (7.5-11.1); NEUT % 62.2 % (42.8-82.8); PLATELET COUNT 285 K/MM3 (134-434); RBC 3.63 M/mm3 (4.00-5.60); RDW 14.4 % (11.9-15.9); WHITE BLOOD COUNT 6.2 K/mm3 (4.0-10.0)
[2019-04-09 07:28] LABS: CALCIUM 8.3 mg/dL (8.5-10.1); CREATININE 0.8 mg/dL (0.55-1.3); POTASSIUM 4.3 mmol/L (3.5-5.1)
[2019-04-09] MEDS: RAMIPRIL 2.5 MG CAPSULE (FP) PO SCH (09:22)
[2019-04-09] MEDS: PANTOPRAZOLE SODIUM 40 MG VIAL IVPUSH SCH ×2 (09:33→22:52)
--- NOTE | 2019-04-09 10:01 | CON.CARD ---
Consult Consult Specialty:: Cardiology Referred by:: Tony Mclaughlin MD Reason for Consultation:: Cardiac evaluation - History of Present Illness Chief Complaint: ?GI bleed History of Present Illness: Patient is a 69 year old male with underlying history of lung CA s/p resection and chemotherapy and radiation therapy, in addition HTN and COPD who presents with complaints of blood on his pillowcase. He denies chest pain, SOB or palpitations. He denies paroxysmal nocturnal dyspnea or orthopnea. He denies fever or chills. He denies nausea, vomiting, diarrhea or abdominal pain. He states having some dark colored stool 2-3 days ago. He is scheduled for EGD and ASA/Plavix have been stopped. [place] [facility] [place] he has been noncompliant lately. 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 Cardio/Vascular: Yes: HTN Pulmonary: Yes: Cancer (Right lung, s/p resection, radiation 2013), COPD Dermatology: Yes: Other (Skin cancer (unkown BCC vs SCC)) - Past Surgical History Additional Surgical History: Lung resection secondary to lung ca - Alcohol/Substance Use Hx Alcohol Use: No History of Substance Use: reports: None - Smoking History Smoking history: Former smoker Have you smoked in the past 12 months: No Aproximately how many cigarettes per day: 5 - Social History Usual Living Arrangement: With Spouse ADL: Independent 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 History of Recent Travel: No Home Medications - Allergies Allergies/Adverse Reactions: Allergies Allergy/AdvReac Type Severity Reaction Status Date / Time No Known Allergies Allergy Verified 04/07/19 13:09 - Home Medications Home Medications: Ambulatory Orders Aspirin [ASA -] 81 mg PO DAILY 03/19/19 Atorvastatin Ca [Lipitor] 40 mg PO HS #30 tablet 03/24/19 Clopidogrel Bisulfate [Plavix -] 75 mg PO DAILY 30 Days #30 tablet 03/24/19 Ramipril [Altace] 2.5 mg PO DAILY 30 Days #30 capsule 03/24/19 Brimonidine Tartrate [Alphagan P 0.1% -] 1 drop TID 04/07/19 Family Disease History - Family Disease History Family Disease History: CA: Mother (: 59 Liver cancer), Other: Brother (1 of an unclear cancer, 1 in accident), Sister (1, healthy) Review of Systems - Review of Systems Constitutional: denies: Chills, Fever Cardiovascular: denies: Chest Pain, Palpitations Respiratory: denies: Cough, Hemoptysis, Orthopnea, PND, SOB, SOB on Exertion Gastrointestinal: denies: Abdominal Pain, Constipation, Diarrhea, Melena, Nausea , Rectal Bleeding, Vomiting Genitourinary: denies: Burning, Discharge, Hematuria Musculoskeletal: reports: No Symptoms Neurological: denies: Dizziness, Headache, Seizure, Syncope Vital Signs: Vital Signs Temperature 98.1 F 04/09/19 05:43 Pulse Rate 66 04/09/19 05:43 Respiratory Rate 17 04/09/19 05:43 Blood Pressure 114/62 04/09/19 05:43 O2 Sat by Pulse Oximetry (%) 97 04/09/19 02:00 Eyes: Yes: PERRL HENT: Yes: Atraumatic Neck: Yes: Supple Respiratory: Yes: CTA Bilaterally Gastrointestinal: Yes: Normal Bowel Sounds, Soft. No: Tenderness Cardiovascular: Yes: Regular Rate and Rhythm JVD: No PMI: Non-Displaced Heart Sounds: Yes: S1, S2. No: Gallop Murmur: No: Systolic Murmur, Diastolic Murmur Edema: No - Other Data Labs, Other Data: CBC, BMP 04/09/19 06:23 04/09/19 06:23 Sinus rhythm with short [place], PVCs Problem List - Problems (1) Melena Code(s): K92.1 - MELENA (2) Suicidal behavior Code(s): R46.89 - OTHER SYMPTOMS AND SIGNS INVOLVING APPEARANCE AND BEHAVIOR Qualifiers: Attempted self-injury: with attempted self-injury Qualified Code(s): T14.91XA - Suicide attempt, initial encounter (3) COPD (chronic obstructive pulmonary disease) Code(s): J44.9 - CHRONIC OBSTRUCTIVE PULMONARY DISEASE, UNSPECIFIED Qualifiers: COPD type: unspecified COPD Qualified Code(s): J44.9 - Chronic obstructive pulmonary disease, unspecified (4) Cerebrovascular accident (CVA) Code(s): I63.9 - CEREBRAL INFARCTION, UNSPECIFIED Qualifiers: CVA mechanism: unspecified Qualified Code(s): I63.9 - Cerebral infarction, unspecified (5) HTN (hypertension) Code(s): I10 - ESSENTIAL (PRIMARY) HYPERTENSION Qualifiers: Hypertension type: essential hypertension Qualified Code(s): I10 - Essential (primary) hypertension (6) Lung cancer Code(s): C34.90 - MALIGNANT NEOPLASM OF UNSP PART OF UNSP BRONCHUS OR LUNG Qualifiers: Laterality: unspecified laterality Assessment/Plan 1. ? GI bleed (upper) 2. COPD 3. HTN 4. History of lung CA s/p resection, chemotherapy and radiation therapy 5. Currently 1:1 observation PLAN: 1. No absolute contraindication for EGD in view of absence of ischemic symptoms , decompensated congestive heart failure or malignant arrhythmias. 2. Continue Ramipril 3. Continue Atorvastatin 4. Oncology input noted Further plans are to follow Sly Carrasco MD
--- NOTE | 2019-04-09 10:30 | PN ---
Progress Note (short form) - Note Progress Note: pt seen/ examined all f/u noted comfortable no further bleeding mood stable slept ok Denies suicidal thoughts Oncology consult noted/ appreciated Vital Signs Temp 98.1 F 04/09/19 05:43 Pulse 66 04/09/19 05:43 Resp 17 04/09/19 05:43 BP 114/62 04/09/19 05:43 Pulse Ox 97 04/09/19 02:00 Intake & Output 04/08/19 04/08/19 04/09/19 11:59 23:59 11:59 Intake Total 800 Balance 800 Intake: Oral 800 Other: Voiding Method Toilet Toilet Toilet # Unmeasured Voids Void 2 600 Bowel Movement No No # Bowel Movements 0 Active Medications Atorvastatin Calcium (Lipitor -) 40 mg PO [facility] Last Admin: 04/08/19 21:16 Dose: 40 mg Brimonidine Tartrate (Alphagan P 0.1% -) 1 drop OD TID [facility] Last Admin: 04/09/19 06:34 Dose: 1 drop Pantoprazole Sodium (Protonix Iv) 40 mg IVPUSH BID [facility] Last Admin: 04/09/19 09:33 Dose: 40 mg Ramipril (Altace -) 2.5 mg PO DAILY [facility] Last Admin: 04/09/19 09:22 Dose: Not Given Trazodone HCl (Desyrel -) 50 mg PO [facility] Last Admin: 04/08/19 22:16 Dose: 50 mg CBC, BMP 04/09/19 06:23 04/09/19 06:23 Physical Examination Constitutional: Yes: No Distress, Calm Eyes: Yes: Conjunctiva Clear Neck: Yes: Supple. no bruie. Cardiovascular: Yes: Regular Rate and Rhythm Respiratory: Yes: CTA Bilaterally Gastrointestinal: Yes: Soft/ non tender Edema: No Neurological: Yes: Alert Psychiatric: Yes: Alert Assessment/Plan stable continue 1!1 sitter continue present care holding asa/plavix for EGD today will follow Problem List - Problems (1) Hemoglobin drop Code(s): R71.0 - PRECIPITOUS DROP IN HEMATOCRIT (2) Major depression Code(s): F32.9 - MAJOR DEPRESSIVE DISORDER, SINGLE EPISODE, UNSPECIFIED Qualifiers: Major depression recurrence: recurrent Active/Remission status: currently active Major depression episode severity: severe Psychotic features: without psychotic features Qualified Code(s): F33.2 - Major depressive disorder, recurrent severe without psychotic features (3) Suicidal behavior Code(s): R46.89 - OTHER SYMPTOMS AND SIGNS INVOLVING APPEARANCE AND BEHAVIOR Qualifiers: Attempted self-injury: with attempted self-injury Qualified Code(s): T14.91XA - Suicide attempt, initial encounter (4) COPD (chronic obstructive pulmonary disease) Code(s): J44.9 - CHRONIC OBSTRUCTIVE PULMONARY DISEASE, UNSPECIFIED Qualifiers: COPD type: unspecified COPD Qualified Code(s): J44.9 - Chronic obstructive pulmonary disease, unspecified (5) Cerebrovascular accident (CVA) Code(s): I63.9 - CEREBRAL INFARCTION, UNSPECIFIED Qualifiers: CVA mechanism: unspecified Qualified Code(s): I63.9 - Cerebral infarction, unspecified (6) HTN (hypertension) Code(s): I10 - ESSENTIAL (PRIMARY) HYPERTENSION Qualifiers: Hypertension type: essential hypertension Qualified Code(s): I10 - Essential (primary) hypertension (7) Lung cancer Code(s): C34.90 - MALIGNANT NEOPLASM OF UNSP PART OF UNSP BRONCHUS OR LUNG Qualifiers: Laterality: unspecified laterality
--- NOTE | 2019-04-09 12:23 | CONSULT ---
Consult - text type - Consultation Consultation Note: NEUROLOGY CONSULT GREATLY APPRECIATED: Events reviewed with nursing staff. Patient currently on 1:1. 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 PMHX includes nicotine dependence, ETOH, HTN, COPD, Lung CA s/p chemo and resection (followed at [facility]), and previous CVA/TIA. Last seen by me in consultation 03/20/19, found with acute/subacute R cerebellar infarcts. Maintained on: Aspirin 81, atorvastatin 40mg, plavix 75 mg, ramipril. Per nursing report, brought in due to concerns of suicidal ideation with plan to "hang himself." He states he is here because he woke up and found blood on his pillow, presumed from coughing or vomiting blood. Pending EGD and currently NPO at this time with ASA, plavix on hold. Currently denies any active or passive suicidal ideation at this time. Admits to depression and inability to sleep due to stresses at work. Started on trazodone 50 mg po qhs for sleep. Tox screen: Neg. UA WBC= 4. Stool occult positive. H/H 10.7/32.3 MCV 89.1 ROHINI:Cor reg. No bruit. Neck supple. NEURO: Mentation/Speech: Ox "[facility]" February 2019. Trump. 01/21 recall @ 3 min. CNII-CNXII: EOM's full without nystagmus. Full kessler. No facial. Motor: Min R upward drift. Strength normal. Reflexes normal. Toes downgoing. Coordination: No FTN dystaxia. Sensation: Normal to vibration. Romberg - Gait: Normal. Can walk on heels and toes without difficulty. Impression: S/P R cerebellar infarcts (old) Depression Suggest: Psychiatry consultation for depression/suicide Check TSH, B12, Iron studies Agree with trial of trazodone 50 mg po qhs (increase to 100 if necessary and tolerated-check orthostatic BP's) Await GI workup. Heme-Onc consult appreciated. Thank you very much, Riaz Valladares MD
[2019-04-09] MEDS ORDERED: BISACODYL 5 MG TABLET.DR (FP) PO ONE (15:00)
[2019-04-09] MEDS ORDERED: PEG 3350/NA SULF BICARB CL/KCL 4000 ML SOLN.RECON PO ONE (16:00)
--- NOTE | 2019-04-09 19:52 | PN ---
Mental Health Exam - Mental Status Exam Alert and Oriented to: Time, Place, Person Cognitive Function: Grossly Intact Patient Appearance: Well Groomed Mood: Hopeful Affect: Appropriate Patient Behavior: Talkative, Cooperative Speech Pattern: Clear Voice Loudness: Moderately Loud Thought Process: Intact Thought Disorder: Not Present Hallucinations: None Suicidal Ideation: Denies (denies any intent to hurt self. ) Homicidal Ideation: Denies Insight/Judgement: Fair Sleep: Well (better with sleep aid. ) Appetite: Good Muscle strength/Tone: Normal Gait/Station: Deferred (spoke with rodney Kee who is made aware that he will be off from 1;1 this trime. spoke with patient and his who feel that he has made noteworthy improvements. Agreeed to follow up in out patient psychiatry.)
[2019-04-09] MEDS: traZODone HCL 50 MG TABLET (FP) PO SCH (22:52)
[2019-04-09] MEDS: ATORVASTATIN CA 40 MG TABLET (FP) PO SCH (22:52)
[2019-04-10 04:11] LABS: SERUM IRON SATURATION 13 % (15-55); TOTAL IRON BINDING CAPACITY 273 ug/dL (250-450); UIBC 237 ug/dL (111-343)
[2019-04-10] MEDS: BRIMONIDINE TARTRATE 0.1% OPHTHALMIC 5 ML BOTTLE OD SCH ×3 (06:44→21:24)
[2019-04-10] MEDS: RAMIPRIL 2.5 MG CAPSULE (FP) PO SCH (09:28)
[2019-04-10] MEDS: PANTOPRAZOLE SODIUM 40 MG VIAL IVPUSH SCH (09:29)
--- NOTE | 2019-04-10 09:42 | PN ---
Progress Note (short form) - Note Progress Note: Colonoscopy complete. report placed in procedural section of physical chart and to be scanned into [facility] Problem List - Problems (1) Caitlyn Code(s): K92.1 - CAITLYN
--- NOTE | 2019-04-10 12:00 | PN ---
Progress Note (short form) - Note Progress Note: S/p EGD and colonoscopy findings reviewed no complaints eating lunch Vital Signs - 24 hr 04/09/19 04/09/19 04/09/19 14:01 14:08 14:16 Temperature 98.3 F 98.8 F Pulse Rate 48 L 57 L 72 Respiratory 17 20 Rate Blood Pressure 92/53 L 125/52 L 114/76 O2 Sat by Pulse 98 100 Oximetry (%) 04/09/19 04/09/19 04/09/19 14:31 22:14 22:15 Temperature 97.6 F 97.6 F Pulse Rate 67 49 L 49 L Respiratory 19 20 20 Rate Blood Pressure 132/67 144/66 144/66 O2 Sat by Pulse 98 Oximetry (%) 04/10/19 04/10/19 04/10/19 02:00 06:19 09:28 Temperature 98.9 F 97.5 F L Pulse Rate 63 48 L Respiratory 18 21 H 18 Rate Blood Pressure 132/64 123/67 O2 Sat by Pulse 98 100 Oximetry (%) 04/10/19 04/10/19 04/10/19 09:43 09:58 10:00 Temperature Pulse Rate 55 L 55 L 55 L Respiratory 21 H 21 H 21 H Rate Blood Pressure 124/60 134/65 134/65 O2 Sat by Pulse 100 100 100 Oximetry (%) Current Medications Generic Name Dose Route Start Last Admin Trade Name Freq PRN Reason Stop Dose Admin Atorvastatin Calcium 40 mg 04/08/19 22:00 04/09/19 22:52 Lipitor - PO 40 mg HS CAROLE Administration Brimonidine Tartrate 1 drop 04/08/19 22:00 04/10/19 06:44 Alphagan P 0.1% - OD 1 drop TID CAROLE Administration Pantoprazole Sodium 20 mg 04/10/19 10:00 Protonix - PO DAILY CAROLE Ramipril 2.5 mg 04/08/19 11:30 04/10/19 09:28 Altace - PO Not Given DAILY CAROLE Trazodone HCl 50 mg 04/08/19 22:00 04/09/19 22:52 Desyrel - PO 50 mg HS CAROLE Administration Laboratory Results - last 24 hr 04/09/19 04/10/19 04/10/19 12:37 05:40 05:40 Iron 36 L TIBC 273 Iron Saturation 13 L Vitamin B12 630 TSH 0.71 Physical Examination Constitutional: Yes: No Distress, Calm Eyes: Yes: Conjunctiva Clear Neck: Yes: Supple. no bruit. Cardiovascular: Yes: Regular Rate and Rhythm Respiratory: Yes: CTA Bilaterally Gastrointestinal: Yes: Soft/ non tender Edema: No Neurological: Yes: Alert Psychiatric: Yes: Alert Assessment/Plan stable s/p EGD and colonoscopy-- no source of bleeding monitor H/HCT not suicidal continue with meds will need to restart antiplatelet therapy if ok with GI Problem List - Problems (1) Hemoglobin drop Code(s): R71.0 - PRECIPITOUS DROP IN HEMATOCRIT (2) Major depression Code(s): F32.9 - MAJOR DEPRESSIVE DISORDER, SINGLE EPISODE, UNSPECIFIED Qualifiers: Major depression recurrence: recurrent Active/Remission status: currently active Major depression episode severity: severe Psychotic features: without psychotic features Qualified Code(s): F33.2 - Major depressive disorder, recurrent severe without psychotic features (3) Melena Code(s): K92.1 - MELENA (4) COPD (chronic obstructive pulmonary disease) Code(s): J44.9 - CHRONIC OBSTRUCTIVE PULMONARY DISEASE, UNSPECIFIED Qualifiers: COPD type: unspecified COPD Qualified Code(s): J44.9 - Chronic obstructive pulmonary disease, unspecified (5) Cerebrovascular accident (CVA) Code(s): I63.9 - CEREBRAL INFARCTION, UNSPECIFIED Qualifiers: CVA mechanism: unspecified Qualified Code(s): I63.9 - Cerebral infarction, unspecified (6) HTN (hypertension) Code(s): I10 - ESSENTIAL (PRIMARY) HYPERTENSION Qualifiers: Hypertension type: essential hypertension Qualified Code(s): I10 - Essential (primary) hypertension (7) Lung cancer Code(s): C34.90 - MALIGNANT NEOPLASM OF UNSP PART OF UNSP BRONCHUS OR LUNG Qualifiers: Laterality: unspecified laterality
[2019-04-10] MEDS: PANTOPRAZOLE 20 MG TABLET (FP) PO SCH (13:29)
[2019-04-10] MEDS: traZODone HCL 50 MG TABLET (FP) PO SCH (21:19)
[2019-04-10] MEDS: ATORVASTATIN CA 40 MG TABLET (FP) PO SCH (21:19)
[2019-04-11] MEDS: BRIMONIDINE TARTRATE 0.1% OPHTHALMIC 5 ML BOTTLE OD SCH (06:25)
[2019-04-11 06:48] LABS: HEMATOCRIT 31.9 % (35.4-49); HEMOGLOBIN 10.8 GM/dL (11.7-16.9); MCH 30.4 pg (25.7-33.7); MEAN CELL VOLUME 89.4 fl (80-96); MEAN PLT VOLUME 9.4 fl (7.5-11.1); PLATELET COUNT 263 K/MM3 (134-434); RBC 3.56 M/mm3 (4.00-5.60); RDW 13.9 % (11.9-15.9); WHITE BLOOD COUNT 7.1 K/mm3 (4.0-10.0)
[2019-04-11 07:33] LABS: ALBUMIN 3.1 g/dl (3.4-5.0); BILIRUBIN,TOTAL 0.2 mg/dL (0.2-1); CREATININE 0.9 mg/dL (0.55-1.3); POTASSIUM 4.5 mmol/L (3.5-5.1); TOT PROT 5.8 g/dl (6.4-8.2)
[2019-04-11] MEDS ORDERED: PT OWN MED DRAWER 7, Y5N ONE (09:47)
[2019-04-11] MEDS: PANTOPRAZOLE 20 MG TABLET (FP) PO SCH (09:49)
[2019-04-11] MEDS: RAMIPRIL 2.5 MG CAPSULE (FP) PO SCH (09:49)
--- NOTE | 2019-04-11 11:02 | PN ---
Progress Note, Physician Chief Complaint: Not in distress History of Present Illness: Patient was seen and examined. Awake and alert. Chart was reviewed Denies chest pain. SOB or palpitations - Current Medication List Current Medications: Active Medications Atorvastatin Calcium (Lipitor -) 40 mg PO HS [facility] Last Admin: 04/10/19 21:19 Dose: 40 mg Brimonidine Tartrate (Alphagan P 0.1% -) 1 drop OD TID [facility] Last Admin: 04/11/19 06:25 Dose: 1 drop Pantoprazole Sodium (Protonix -) 20 mg PO DAILY [facility] Last Admin: 04/11/19 09:49 Dose: 20 mg Ramipril (Altace -) 2.5 mg PO DAILY [facility] Last Admin: 04/11/19 09:49 Dose: 2.5 mg Trazodone HCl (Desyrel -) 50 mg PO [facility] Last Admin: 04/10/19 21:19 Dose: 50 mg - Objective Vital Signs: Vital Signs Temperature 98.5 F 04/11/19 05:07 Pulse Rate 60 04/11/19 05:07 Respiratory Rate 20 04/11/19 05:07 Blood Pressure 124/62 04/11/19 05:07 O2 Sat by Pulse Oximetry (%) 98 04/11/19 02:00 Eyes: Yes: PERRL HENT: Yes: Atraumatic Neck: Yes: Supple Cardiovascular: Yes: Regular Rate and Rhythm, S1, S2 Respiratory: Yes: CTA Bilaterally Gastrointestinal: Yes: Normal Bowel Sounds, Soft. No: Tenderness Edema: No Labs: CBC, BMP 04/11/19 05:00 04/11/19 05:00 Problem List - Problems (1) Melena Code(s): K92.1 - MELENA (2) Suicidal behavior Code(s): R46.89 - OTHER SYMPTOMS AND SIGNS INVOLVING APPEARANCE AND BEHAVIOR Qualifiers: Attempted self-injury: with attempted self-injury Qualified Code(s): T14.91XA - Suicide attempt, initial encounter (3) COPD (chronic obstructive pulmonary disease) Code(s): J44.9 - CHRONIC OBSTRUCTIVE PULMONARY DISEASE, UNSPECIFIED Qualifiers: COPD type: unspecified COPD Qualified Code(s): J44.9 - Chronic obstructive pulmonary disease, unspecified (4) Cerebrovascular accident (CVA) Code(s): I63.9 - CEREBRAL INFARCTION, UNSPECIFIED Qualifiers: CVA mechanism: unspecified Qualified Code(s): I63.9 - Cerebral infarction, unspecified (5) HTN (hypertension) Code(s): I10 - ESSENTIAL (PRIMARY) HYPERTENSION Qualifiers: Hypertension type: essential hypertension Qualified Code(s): I10 - Essential (primary) hypertension (6) Lung cancer Code(s): C34.90 - MALIGNANT NEOPLASM OF UNSP PART OF UNSP BRONCHUS OR LUNG Qualifiers: Laterality: unspecified laterality Assessment/Plan 1. Sigmoid polyp 2. COPD 3. HTN 4. History of lung CA s/p resection, chemotherapy and radiation therapy PLAN: 1. GI input noted 2. Continue Ramipril 3. Continue Atorvastatin Discharge planning Sly Carrasco MD
--- NOTE | 2019-04-11 12:03 | DS ---
Physical Examination Vital Signs: Vital Signs Temperature 98.5 F 04/11/19 05:07 Pulse Rate 60 04/11/19 05:07 Respiratory Rate 20 04/11/19 05:07 Blood Pressure 124/62 04/11/19 05:07 O2 Sat by Pulse Oximetry (%) 98 04/11/19 02:00 Constitutional: Yes: No Distress, Calm Cardiovascular: Yes: Regular Rate and Rhythm Respiratory: Yes: CTA Bilaterally Gastrointestinal: Yes: Normal Bowel Sounds, Soft. 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 esophagus but biopsy not done as he was on ASA/ plavix -- pt needs to get EGD repeated to get biopsy Colonoscopy-- 4mm polyp-- polypectomy done-- follow up Pathology recommend capsule endoscopy and follow up with Oncology for other causes of anemia-- spoke with in detail today restarted ASA 81 mg only - spoke with GI stable for dc home Condition: Stable - Instructions Referrals: Luis Mahan DO [Staff Physician] - Antonino Florian MD [Staff Physician] - Corie Clayton MD [Staff Physician] - 2 Weeks (capsule endoscopy , repeat EGD ) Nima Gaspar MD [Staff Physician] - Disposition: HOME - Home Medications Comprehensive Discharge Medication List: Ambulatory Orders Aspirin [ASA -] 81 mg PO DAILY 03/19/19 Atorvastatin Ca [Lipitor] 40 mg PO HS #30 tablet 03/24/19 Ramipril [Altace] 2.5 mg PO DAILY 30 Days #30 capsule 03/24/19 Brimonidine Tartrate [Alphagan P 0.1% -] 1 drop TID 04/07/19 Pantoprazole Sodium [Protonix -] 20 mg PO DAILY #30 tablet.ec 04/11/19
[2019-04-11 12:54] VITALS: BP 124/52; PULSE 66; TEMP 98.8
--- NOTE | 2019-04-11 15:27 | PN ---
Progress Note (short form) - Note Progress Note: Had discussion with Mr. Nunez re: colonoscopy findings. I had spoken to him while he was in recovery after the procedure but he did not remember. Outpatient follow-up in 2-3 weeks in office Problem List - Problems (1) Melena Code(s): K92.1 - MELENA
--- NOTE | 2019-04-11 17:59 | PATH ---
Surgical Pathology Report Patient Name: ANA FAGAN [facility]. Rec. #: [id number] /Age/Gender: 1950 (Age: 69) / M Account: [id number] Location: [address] [place] [address]/[facility] Taken: 04/10/2019 Received: 04/10/2019 Reported: 04/11/2019 Physicians: Raeann Degroot M.D. Specimen(s) Received POLYP SIGMOID Clinical History Anemia, guaiac positive Postoperative diagnosis: Diverticulosis and colon polyp Final Diagnosis SIGMOID POLYP, BIOPSY: TUBULAR ADENOMA. Electronically Signed Anette Castillo M.D. Gross Description Received in formalin, labeled "sigmoid polyp BX" is a heaton, irregular portion of soft tissue measuring 0.2 cm. in greatest dimension. The specimen is submitted in toto in one cassette. MLSZ/04/10/2019 sanml/04/10/2019
== END 2019-04-11 16:10 | disposition home or self-care (01) | DRG 378 ==
LOC: JER 11:38 → JERBED 15:00 → J6S 17:01 → OBSVTOIN 04-08 11:33
PROVIDERS: ADMIT Internal Medicine; ATTEND Internal Medicine
PROC: 0DJ08ZZ Inspection of Upper Intestinal Tract, Via Natural or Artificial Opening Endoscopic (ICD-10-PCS; principal; 2019-04-09 13:15)
PROC: 0DBN8ZX Excision of Sigmoid Colon, Via Natural or Artificial Opening Endoscopic, Diagnostic (ICD-10-PCS; 2019-04-10)
DX: K92.2 Gastrointestinal hemorrhage, unspecified (principal); R45.851 Suicidal ideations; D64.9 Anemia, unspecified; I25.10 Atherosclerotic heart disease of native coronary artery without angina pectoris; I10 Essential (primary) hypertension; Z85.118 Personal history of other malignant neoplasm of bronchus and lung; Z86.73 Personal history of transient ischemic attack (TIA), and cerebral infarction without residual deficits; J43.9 Emphysema, unspecified; E78.5 Hyperlipidemia, unspecified; Z87.891 Personal history of nicotine dependence; Z90.2 Acquired absence of lung [part of]; Z85.828 Personal history of other malignant neoplasm of skin; F32.9 Major depressive disorder, single episode, unspecified; E05.90 Thyrotoxicosis, unspecified without thyrotoxic crisis or storm; D12.5 Benign neoplasm of sigmoid colon; K57.30 Diverticulosis of large intestine without perforation or abscess without bleeding; K64.8 Other hemorrhoids; K22.70 Barrett's esophagus without dysplasia
CPT/HCPCS: 36415; 71045-TC-FY; 80048; 80053; 80307; 81003; 82272; 82550; 82607; 83540; 83550; 84443; 84484; 85025; 85027; 85610; 86850; 86900; 86901; 88305-TC; 93005; 93010; 99284-25; G0378; J7030

== ENCOUNTER 2019-07-05 09:38 | Day surgery (SDC) | payer BC ==
[2019-07-05 10:34] VITALS: TEMP 97.9; BMI 20.5
[2019-07-05 13:22] VITALS: BP 167/72; PULSE 59
--- NOTE | 2019-07-06 19:02 | PATH ---
Surgical Pathology Report Patient Name: ANA FAGAN [facility]. Rec. #: [id number] /Age/Gender: 1950 (Age: 69) / M Account: [id number] Location: [facility] Taken: 07/05/2019 Received: 07/05/2019 Reported: 07/06/2019 Physicians: Juan Mahan D.O. Specimen(s) Received A: SECOND PORTION OF DUODENUM AND BULB B: ANGULARIS AND BODY C: DISTAL ESOPHAGUS 42 CM Clinical History Rule out Urias's esophagus Postoperative diagnosis: Gastritis, rule out Urias's esophagus Final Diagnosis A. DUODENUM, SECOND PORTION AND BULB, BIOPSY: DUODENAL MUCOSA WITH MILD ACUTE AND CHRONIC DUODENITIS. B. STOMACH, ANGULARIS AND BODY, BIOPSY: GASTRIC BODY MUCOSA WITH SEVERE CHRONIC ACTIVE GASTRITIS AND INTESTINAL METAPLASIA. NO DYSPLASIA IDENTIFIED. IMMUNOHISTOCHEMICAL STAIN FOR H. PYLORI IS POSITIVE (FEW). C. DISTAL ESOPHAGUS, 42 CM, BIOPSY: SQUAMOCOLUMNAR MUCOSA WITH MODERATE ACUTE AND CHRONIC INFLAMMATION AND CHANGES OF MODERATE REFLUX ESOPHAGITIS. NO INTESTINAL METAPLASIA OR DYSPLASIA IDENTIFIED. Electronically Signed Anette Castillo M.D. Gross Description A. Received in formalin, labeled "second portion and bulb of duodenum biopsy" are 5 heaton, irregular portions of soft tissue ranging from 0.2-0.4 cm. in greatest dimension. The specimens are submitted in toto in one cassette. B. Received in formalin, labeled "angularis and body biopsy" are 4 heaton, irregular portions of soft tissue ranging from 0.2-0.3 cm. in greatest dimension. The specimens are submitted in toto in one cassette. C. Received in formalin, labeled "distal esophagus biopsy at 42 cm" are 3 heaton, irregular portions of soft tissue ranging from 0.2-0.5 cm. in greatest dimension. The specimens are submitted in toto in one cassette. 07/05/201907/05/2019
== END 2019-07-05 13:15 | disposition home or self-care (01) ==
LOC: JASU-ENDO 09:38
PROVIDERS: ATTEND Internal Medicine Gastroenterology
PROC: 0DB68ZX Excision of Stomach, Via Natural or Artificial Opening Endoscopic, Diagnostic (ICD-10-PCS; 2019-07-05)
PROC: 0DB58ZX Excision of Esophagus, Via Natural or Artificial Opening Endoscopic, Diagnostic (ICD-10-PCS; 2019-07-05)
PROC: 0DB98ZX Excision of Duodenum, Via Natural or Artificial Opening Endoscopic, Diagnostic (ICD-10-PCS; principal; 2019-07-05 09:45)
DX: K22.70 Barrett's esophagus without dysplasia (principal); K29.70 Gastritis, unspecified, without bleeding
CPT/HCPCS: 82962; 88305-TC; 88342-TC